=== PATIENT | female | born 1990 | race Caucasian/White ===

== ENCOUNTER 2020-04-27 08:43 | Outpatient (REF) | payer SELFPAY | END 2020-04-27 08:44 | disposition home or self-care (01) | LOC: HO.LAB 08:43 | PROVIDERS: Visit Provider Internal Medicine | DX: Z20.828 Contact with and (suspected) exposure to other viral communicable diseases (principal) | CPT/HCPCS: C9803; U0003 ==

== ENCOUNTER 2025-01-24 11:19 | Emergency (ER) | payer BC, SELFPAY ==
--- OUTSIDE RECORDS SUMMARY | 2025-01-15 11:00 | XMS_ITS | Continuity of Care Document ---
Author Organization [facility] Address [address] [place] [address] [address] [place] [id number] Phone Care Team Providers Care Cutter Woodwind Reeds Name Role Phone Kyle HECTOR, RVT, RPVI, Manfred Unavailable U navailable Allergies, Adverse Reactions, Alerts Substance Reaction Status Criticality No Known Allergies Active No Inform ation Procedures Procedure Date Office/Outpt E&M Established 15 Mins- CT & [place] Duplex Scan-extrem Veins; Comp- CT & [place] Duplex Scan-extrem Veins; Uni/ CT & [place] J Endovenous Rf, 1st Vein- [place] & [place] 2024 Duplex Scan-extrem Veins; Uni/ CT & [place] J Varithena, Single Truncal Vein - CT & [place] Endovenous Laser, 1st Vein- CT & [place] PT Did Not Receive Services Offic/outpt E&m Estab 5 Min Trial- Telem edicine CT & [place] Office/Oupt E&M New Pt 45 Mins- CT & [place] Duplex Scan-extrem Veins; Comp- CT & [place] Duplex Scan-extrem Veins; Uni/ CT & [place] J Advance Directives Directive Yes / No Effective Date File Name No Information Encounters Encounter Description Practice Location Reason(s) For Visit Diagnoses Date Provider Providers Copied on Encounter Office/Outpt E&M Established 15 Mins- [place] & [place] [facility], [address] [place] [address] Dr Marrero [address] 1000Sarah [place], [id number], [place] tel:[phone] [facility] Venous insufficiency (chronic) (peripheral) 5 Kyle HECTOR RVT, MONICA Shearer. [address] [place] [address], [address], [place], [id number], [place]. tel:[phone] Referring Provider: Quincy Thurston, [address], [address], [place], [id number]. tel:[phone] [facility] [address] Marrero [address] 1000Sarah [place], [id number], [place] tel:[phone] [facility] Chronic venous hypertension (idiopathic) with other complications of bilateral lower extremity 5 Kyle HECTOR RVT, MONICA Shearer. [address] [place] [address], [address], [place], [id number], [place]. tel:[phone] Referring Provider: Quincy Thurston, [address], [address], [place], [address]. tel:[phone] [facility], [address] [place] [address] Dr Marrero 1000[address] 1000Sarah [place], [id number], [place] tel:[phone] [facility] Encounter for follow-up examination after completed treatment for conditions other than malignant neoplasmChron ic venous hypertension (idiopathic) with other complications of right lower extremity 5 Kyle HECTOR RVT, MONICA Shearer. [address] [place] [address], [address], [place], [id number], [place]. tel:[phone] Referring Provider: Quincy Thurston, [address], [address], [place], [address]. tel:[phone] [facility] MD RAINES, [address] [place] [address] Dr Marrero 1000Suite 1000Sarah [place], [id number], [place] tel:[phone] [facility] Chronic venous hypertension (idiopathic) with inflammation of right lower extremity 5 Kyle HECTOR RVT, MONICA Shearer. [address] [place] [address], [address], [place], [id number], [place]. tel:[phone] Referring Provider: Quincy Thurston, [address], [address], [place], [address]. tel:[phone] [facility], [address] [place] [address] Dr Marrero 1000[address], [place] Sarah, [id number], [place] tel:[phone] [facility] Encounter for follow-up examination after completed treatment for conditions other than malignant neoplasmChron ic venous hypertension (idiopathic) with other complications of left lower extremity 5 Kyle HECTOR RVT, MONICA Shearer. [address] [place] [address], [address], [place], [id number], [place]. tel:[phone] Referring Provider: Quincy Thurston, [address], [address], [place], [address]. tel:[phone] [facility], [address] [place] [address] [address]Sarah [place], [id number], [place] tel:[phone] [facility] Varicose veins of left lower extremity with other complications 5 Kyle HECTOR RVT, MONICA Shearre. [address] [place] [address], [address], [place], [id number], [place]. tel:[phone] Referring Provider: Quincy hTurston, [address], [address], [place], [address]. tel:[phone] [facility], [address] [place] [address] [address] [address] 1000Sarah [place], [id number], [place] tel:[phone] [facility] Venous insufficiency (chronic) (peripheral) 5 Kyle HECTOR, TORY, MONICA Shearer. [address] [place] [address] 302, [place], [id number], [place]. tel:[phone] Referring Provider: Quincy Thurston, [address], [address], [place], [address]. tel:[phone] [facility], [address] [place] [address] [facility] [address], [place] Sarah, [id number], tel:[phone] [facility] No Information 5 Kyle HECTOR RVT, MONICA Shearer. [address] [place] [address], [place], [id number], [place]. tel:[phone] [place] [facility], [address] [place] [address] [facility] [address], [place] Sarah, [id number], [place] tel:[phone] [facility] No Information 5 Sedrick Lay. [address] [place] [address], [place], [id number], [place]. tel:[phone] Referring Provider: Quincy Thurston, [address], [address], [place], [address]. tel:[phone] Offic/outpt E&m Estab 5 Min Trial- Telemedicine CT & [place] [facility], [address] [place] [address] [facility] [address], [place] Sarah, [id number], [place] tel:[phone] [facility] Localized edemaCramp and spasmRestless legs syndromeVenou s insufficiency (chronic) (peripheral) 5 Sedrick Lay. [address] [facility], [address], [place], [id number], [place]. tel:[phone] Referring Provider: Quincy Thurston, [address], [address], [place], [address]. tel:[phone] Office/Oupt E&M New Pt 45 Mins- CT & [place] [facility], [address] [place] [address] [facility] [address], [place] Sarah, [id number], tel:[phone] [facility] [place] [facility] [place] Chronic venous hypertension (idiopathic) with other complications of bilateral lower extremityRest less legs syndromeCramp and spasmLocalize d edema 4 Kyle HECTOR RVT, MONICA Shearer. [address] [place] [address], [place], [id number], [place]. tel:[phone] Referring Provider: Quincy Thurston, [address], [address], [place], [address]. tel:[phone] [facility], [address] [place] [address] [facility] 1000[address] 1000Sarah [place], [id number], [place] tel:[phone] [facility] [place] [facility] [place] Chronic venous hypertension (idiopathic) with other complications of bilateral lower extremity 4 Kyle HECTOR RVT, MONICA Shearer. [address] [place] [address], [address], [place], [id number], [place]. tel:[phone] Referring Provider: Quincy Thurston, [address], [address], [place], [address]. tel:[phone] [facility], [address] [place] [address] Dr Marrero 1000[address] 1000Sarah [place], [id number], [place] tel:[phone] [facility] [place] [facility] [place] Pain in left leg 4 Kyle HECTOR RVT, MONICA Shearer. [address] [place] [address], [address], [place], [id number], [place]. tel:[phone] Referring Provider: Quincy Thurston, [address], [address], [place], [address]. tel:[phone] Family History Family Member Type Diagnosis Age At Onset No Information Payers Payer name Insurance type Covered constitution party ID Authoresme humphreys(s) POLI EMERALD ORO [id number] Social History Type Description Quantity Date Captured Comments Alcohol Use Details Unknown Caffeine Use Details Unknown Tobacco Use Status Current non-smoker Smoking Status Never Smoker Non-Smoking Tobacco Use Details : No Details Available : No Details Available Sex Female Vital Signs Date / Time: Height Weight BMI Pulse Rate Blood Pressure Temperature Respiratory Rate Body Surface Area Head Circumference Head Circ. Percentile Wt./Florentino. Percentile BMI percentile Pulse Ox Inhaled Ox 72.570 kg (160.00 lbs) 25.9 0 kg/m eter (2) 120/78 mm[Hg] Chief Complaint And Reason For Visit No Information Reason For Referral Reason For Referral No Information Plan Of Treatment Date Type Action Status Goal Diet education completed Goal Diet education completed Referral Ordered: Weight management: Referral to physician timeframe: 3 Months (related to Body mass index (BMI) 25.0-25.9, adult) ordered Referral Ordered: Weight management: Referral to physician timeframe: 3 Months (related to Body mass index (BMI) 25.0-25.9, adult) ordered History Of Present Illness Encounter Date Complaint History Of Prese nt Illness No Information Functional Status Date Functional Assessmen t No Information Instructions Date Instruction Additional Infor kimion Patient education booklet given Related to Venous insufficiency (chronic) (peripheral) Compression stocking usage as conservative measure Related to Venous insufficiency (chronic) (peripheral) Lifestyle education Related to B fatoumata mass index (BMI) 25.0-25.9, adult Giving Encouragement to exercise Related to Body mass index (BMI) 25.0-25.9, adult Diet education Related to Body mass index (BMI) 25.0-25.9, adult Pre and post instruc tions reviewed and provided Related to Localized edema Patient education booklet given Related to Localized edema Lifestyle education Related to B fatoumata mass index (BMI) 25.0-25.9, adult Giving Encouragement to exercise Related to Body mass index (BMI) 25.0-25.9, adult Pre and post instruc tions reviewed and provided Related to Chronic venous hypertension (idiopathic) with other complications of bilateral lower extremity Patient education booklet given Related to Chronic venous hypertension (idiopathic) with other complications of bilateral lower extremity Diet education Related to Body mass index (BMI) 25.0-25.9, adult Assessments Type Assessment Date No Information Patient Care Teams Name Effective Dates (start - stop) Status Members No Information
--- NOTE | ~2025-01-24 | CT_ITS ---
EXAMINATION: CT ABDOMEN AND PELVIS WITH CONTRAST CLINICAL INFORMATION: Abdominal pain COMPARISON: None available. TECHNIQUE: Multidetector volumetric images were obtained from the superior aspect of the liver through the pubic symphysis following administration 85 mL of Omnipaque 350 intravenous contrast. Sagittal and coronal reformatted images were obtained on the technologist's workstation. Oral contrast: No This CT examination was performed using dose optimization techniques as appropriate, variously including the following: *Automated exposure control *Adjustment of mA and/or kV according to patient size (this includes techniques or standardized protocols for targeted exams where dose is matched to indication/reason for exam; i.e. extremities or head) *Use of iterative reconstruction technique DLP: 560 mGY*cm FINDINGS: LUNG BASES: The visualized lung bases are unremarkable. LIVER, GALLBLADDER, AND BILIARY TREE: The liver is normal in size, shape, and attenuation. No focal hepatic lesion or biliary ductal dilatation is present. The gallbladder is unremarkable with no evidence of radiopaque gallstones, gallbladder wall thickening, or obvious pericholecystic inflammatory changes. PANCREAS: Unremarkable. SPLEEN: Unremarkable. ADRENAL GLANDS: Unremarkable. KIDNEYS AND URETERS: The kidneys are normal in size, shape, and attenuation. No hydronephrosis, hydroureter, or calculi seen. No perinephric stranding. BLADDER: Unremarkable. GASTROINTESTINAL TRACT: The small and large bowel are unremarkable. The appendix is unremarkable. ABDOMINAL WALL: There is a small umbilical hernia containing normal density adipose tissue. LYMPH NODES: Normal. VASCULAR: Unremarkable. PELVIC VISCERA: Uterus and ovaries are identified. There is a dominant follicle in the left ovary OSSEOUS STRUCTURES: Unremarkable. CT/CT abdomen pelvis w IV con IMPRESSION: Unremarkable abdomen and pelvis aside from a small umbilical hernia. Fleischner guidelines were followed. Electronically signed by: Marc Rowland MD 01/24/2025 03:00 PM EDT
--- NOTE | 2025-01-24 11:30 | ED.GENADULT ---
HPI - General Adult General Chief complaint: Abdominal Pain Stated complaint: vomiting blood Time Seen by Provider: 01/24/25 12:16 History of Present Illness ED Provider: Oli Barba HPI narrative: 34 yold female with pmh of treasurejacques purcell tear presents to the ED for abdominal pain and vomitting. Patient states after having steak dinner last night patient states she woke up with abdominal pain vomitting bile mutiple times and than had emesis with specs of blood. Patient denies any hemorrhage profound bleeding or coffe ground emesis. patient states feeling nauseaous since . Patient states she had only small amount of wine last night. Patient denies any profuse alcohol drinking or any drug use. She has not had any vomiting of blood while waiting to be seen in the ED. Patient states pain that is more acid burning sensation Related Data Previous Rx's ?Medication ?Instructions ?Recorded famotidine 20 mg tablet (Pepcid) 20 mg PO BID 10 days #20 tabs 01/24/25 Allergies Allergy/AdvReac Type Severity Reaction Status Date / Time pear Allergy Unknown Verified 01/24/25 11:32 Review of Systems Review of Systems: Vomiting bowel and mild blood abdominal Yes all other systems are reviewed and are negative [facility] Social History Social History Alcohol intake: current Physical Exam ED Vital Signs: Vital Signs - 24 hr 01/24/25 11:31 01/24/25 12:21 01/24/25 14:44 Temperature 98.6 F 98.7 F Pulse Rate 70 68 71 Respiratory Rate 16 18 15 Blood Pressure 118/78 134/82 127/77 Pulse Oximetry 96 99 98 Oxygen Delivery Method Room Air Room Air Room Air 01/24/25 15:48 Temperature Pulse Rate 70 Respiratory Rate 16 Blood Pressure 134/88 Pulse Oximetry 98 Oxygen Delivery Method Room Air BMI result Body Mass Index 27.8 Const General: cooperative, healthy appearing, comfortable, no acute distress, well developed, alert, awake and Physically active Orientation/consciousness: patient oriented x3 HENMT Head: Yes normal to inspection, Yes No palpable skull fracture present, Yes normocephalic, Yes atraumatic and No abrasion Mouth: Normal oral and palatal mucosa present, lip normal and tongue normal Teeth and gingiva: dentition normal and gingiva normal Throat: Yes posterior oropharynx normal, Yes tonsils normal and Yes uvula midline Eyes General: appearance normal, both eyes and all related structures Neck Neck: Yes normal visual inspection, Yes full ROM, Yes no lymphadenopathy, Yes no meningeal signs, Yes trachea midline, Yes supple, No anterior neck swelling and No tender Chest Chest palpation & inspection: normal inspection of the chest and normal palpation of entire chest wall Resp Effort & Inspection: normal respiratory effort and able to speak in complete sentences Auscultation: clear to auscultation bilaterally Cardio Jugular venous distension: no JVD Heart sounds: S1 normal heart sound present and S2 normal heart sound present GI Other: Rectal exam negative for any active bleeding, black stool, melena, or hemorrhoids Inspection: Yes normal to inspection Palpation (GI): Soft to palpation, not firm, nontender, no guarding and not rigid General: Yes no CVA tenderness Back/Spine/Pelvis Back: no CVA tenderness and No back tenderness Skin General skin exam: no rashes or lesions noted, elasticity normal and turgor normal Neuro General: patient oriented x3, gait normal, tone normal, moves all extremities, Normal light touch and pain sensation, no meningeal signs, no focal motor deficits and CN's II-XI intact bilaterally Extrem General: Yes normal to inspection, Yes full ROM and Yes capillary refill normal Psych Appearance: grossly normal, well kempt and not disheveled Course Course Course Narrative: RME, this is a rapid medical exam performed by Serge Reynoso please refer to primary provider for complete H&P- 34-year-old female presents for evaluation of abdominal pain, vomiting. She reports vomiting blood that started this morning. 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 She reports drinking 1 glass of wine 2 to 3 times a week but no excessive alcohol use. Plan for labs. She appears quite comfortable, less likely surgical abdomen, we will defer imaging at this time Medications Administered Discontinued Medications Generic Name Dose Route Start Last Admin Trade Name Freq PRN Reason Stop Dose Admin Sodium Chloride 1,000 mls @ 999 mls/hr 01/24/25 14:15 01/24/25 14:57 Ns IV 01/24/25 15:15 999 mls/hr .Q1H1M STA Administration Iohexol 100 ml 01/24/25 14:51 01/24/25 14:52 Iohexol 350 Mg/Ml 100 Ml Infus..Btl IV 01/24/25 14:52 85 ml ONCE ONE Administration Ondansetron HCl 4 mg 01/24/25 12:43 01/24/25 12:57 Ondansetron Hcl 4 Mg/2 Ml Vial IVPUSH 01/24/25 12:44 4 mg ONCE ONE Administration Pantoprazole Sodium 80 mg 01/24/25 12:50 01/24/25 12:57 Pantoprazole Sodium 40 Mg/10 Ml Vial IVPUSH 01/24/25 12:51 80 mg ONCE ONE Administration Medical Decision Making Medical Decision Making [facility] Narrative: 34-year-old female history of Treasure-Alvarenga tear presents to ED for multiple episodes of vomiting with yellow bile and then some specks of blood. Initial labs are stable. Patient states feeling better after receiving Protonix and Zofran. Patient has not had any emesis episode or emesis with blood. Patient denies drinking large volume of alcohol. Unlikely Treasure-Alvarenga tear was sent for CAT scan due to patient stating vomiting with yellow bowel to make sure that is no pancreatitis or cholecystitis. Rectal exam negative for any stool. Patient is comfortable we will re-evaluate pending CT scan. 3:43pm: Abdominal CT scan came back normal. Repeat CBC came back stable. Patient is hemodynamically stable. Patient is eating food. Occult stool sample negative. Not suspecting GI bleed, Treasure-Alvarenga tear, esophageal varices, abdominal perforation, CT, or any other life-threatening etiology. Patient explained worrisome signs and informed to return to the ED immediately. Patient's ate a plate of food before discharge Differential Diagnosis Differential Diagnoses: The differential diagnosis associated with the presentation includes (Gastritis, Alvarenga tear, GI bleed, colitis) Admission/Observation Consideration of admission/observation: Escalation of care including admission/observation considered Lab Data [facility] Lab Attestation statement: I reviewed the patient's lab results. 01/24/25 15:27 01/24/25 11:52 Labs: Lab Results 01/24/25 01/24/25 01/24/25 Range/Units 11:52 13:39 13:40 WBC 11.4 H (4.8-10.8) X10*3/uL RBC 4.31 (4.20-5.50) X10*6/uL Hgb 13.1 (12.0-16.0) g/dl Hct 37.8 (37.0-47.0) % MCV 87.7 (80.0-98.0) fL MCH 30.4 (27.0-33.0) pg MCHC 34.7 (31.0-35.0) g/dl RDW 12.3 (11.0-16.0) % Plt Count 376 (160-400) X10*3/uL MPV 9.8 (9.4-12.3) fL Immature Gran % (Auto) 0.4 (0.0-0.4) % Neut % (Auto) 81.1 H (45-73) % Lymph % (Auto) 12.9 L (20-40) % Piute % (Auto) 5.1 (2-11) % Eos % (Auto) 0.0 (0-4) % Baso % (Auto) 0.5 (0-2) % Lymph # (Auto) 1.5 (1.2-4.9) X10*3/uL [place] # (Auto) 0.6 (0.1-1.2) X10*3/uL Eos # (Auto) 0.0 (0.0-0.4) X10*3/uL Baso # (Auto) 0.1 (0.0-0.2) X10*3/uL Abs Immat Gran (auto) 0.04 H (0.00-0.03) X10*3/uL Absolute Neuts (auto) 9.2 H (2.0-8.3) x10*3/uL Absolute Nucleated RBC 0.000 (0.0-0.012) X10*3/uL Nucleated RBC % (auto) 0.0 (0.0-0.2) /100WBC PT 11.3 (10.9-12.4) SEC INR 1.0 (0.9-1.1) Sodium 140 (135-145) mmol/L Potassium 3.8 (3.3-5.1) mmol/L Chloride 106 (96-108) mmol/L Carbon Dioxide 24 (22-29) mmol/L Anion Gap 14 (12-20) BUN 12 (9-16) mg/dL Creatinine 0.66 (0.5-1.4) mg/dL Estim Creat Clear Calc 125.4 Estimated GFR > 60 Random Glucose 102 (60-115) mg/dL Calcium 9.3 (8.4-10.2) mg/dL Total Bilirubin 0.5 (0.0-1.0) mg/dL AST 26 (5-31) U/L ALT 29 (0-31) U/L Alkaline Phosphatase 49 (39-117) U/L Troponin I High Sens < 2.7 (<3.5-17.0) ng/L Total Protein 7.3 (6.5-8.0) g/dL Albumin 5.0 (3.5-5.0) g/dL Lipase 37 (8-78) U/L Beta HCG, Quant < 2 mIU/mL Urine Color Yellow Urine Appearance Clear Urine pH 7.5 (5.0-9.0) Ur Specific [place] 1.025 (1.005-1.025) Urine Protein Negative (Neg-Trace) mg/dL Urine Glucose (UA) Negative (Negative) mg/dL Urine Ketones Negative (Negative) mg/dL Urine Blood Negative (Negative) Urine Nitrite Negative (Negative) Ur Leukocyte Esterase Negative (Negative) Urine RBC 0-2 (0-2) /HPF Urine WBC 0-5 (0-5) /HPF Ur Squamous Epith Cells 6-10 (0-2) /HPF Urine Bacteria 2+ (None Seen) Hyaline Casts 0-2 (0-2) /LPF Urine Test NEGATIVE (NEGATIVE) Stool Occult Blood NEGATIVE (NEGATIVE) Ethyl Alcohol < 10 mg/dL Influenza Type A (PCR) NEGATIVE (Negative) Influenza Type B (PCR) NEGATIVE (Negative) RSV RNA Qual (PCR) NEGATIVE (Negative) SARS-CoV-2 RNA (RT-PCR) NEGATIVE (Negative) S. pyogenes GrpA BECKI Negative (Negative) 01/24/25 Range/Units 15:27 WBC 11.9 H (4.8-10.8) X10*3/uL RBC 4.14 L (4.20-5.50) X10*6/uL Hgb 12.3 (12.0-16.0) g/dl Hct 36.9 L (37.0-47.0) % MCV 89.1 (80.0-98.0) fL MCH 29.7 (27.0-33.0) pg MCHC 33.3 (31.0-35.0) g/dl RDW 12.4 (11.0-16.0) % Plt Count 351 (160-400) X10*3/uL MPV 9.5 (9.4-12.3) fL Immature Gran % (Auto) 0.4 (0.0-0.4) % Neut % (Auto) 71.1 (45-73) % Lymph % (Auto) 20.3 (20-40) % Piute % (Auto) 7.7 (2-11) % Eos % (Auto) 0.0 (0-4) % Baso % (Auto) 0.5 (0-2) % Lymph # (Auto) 2.4 (1.2-4.9) X10*3/uL [place] # (Auto) 0.9 (0.1-1.2) X10*3/uL Eos # (Auto) 0.0 (0.0-0.4) X10*3/uL Baso # (Auto) 0.1 (0.0-0.2) X10*3/uL Abs Immat Gran (auto) 0.05 H (0.00-0.03) X10*3/uL Absolute Neuts (auto) 8.4 H (2.0-8.3) x10*3/uL Absolute Nucleated RBC 0.000 (0.0-0.012) X10*3/uL Nucleated RBC % (auto) 0.0 (0.0-0.2) /100WBC PT (10.9-12.4) SEC INR (0.9-1.1) Sodium (135-145) mmol/L Potassium (3.3-5.1) mmol/L Chloride (96-108) mmol/L Carbon Dioxide (22-29) mmol/L Anion Gap (12-20) BUN (9-16) mg/dL Creatinine (0.5-1.4) mg/dL Estim Creat Clear Calc Estimated GFR Random Glucose (60-115) mg/dL Calcium (8.4-10.2) mg/dL Total Bilirubin (0.0-1.0) mg/dL AST (5-31) U/L ALT (0-31) U/L Alkaline Phosphatase (39-117) U/L Troponin I High Sens (<3.5-17.0) ng/L Total Protein (6.5-8.0) g/dL Albumin (3.5-5.0) g/dL Lipase (8-78) U/L Beta HCG, Quant mIU/mL Urine Color Urine Appearance Urine pH (5.0-9.0) Ur Specific [place] (1.005-1.025) Urine Protein (Neg-Trace) mg/dL Urine Glucose (UA) (Negative) mg/dL Urine Ketones (Negative) mg/dL Urine Blood (Negative) Urine Nitrite (Negative) Ur Leukocyte Esterase (Negative) Urine RBC (0-2) /HPF Urine WBC (0-5) /HPF Ur Squamous Epith Cells (0-2) /HPF Urine Bacteria (None Seen) Hyaline Casts (0-2) /LPF Urine Test (NEGATIVE) Stool Occult Blood (NEGATIVE) Ethyl Alcohol mg/dL Influenza Type A (PCR) (Negative) Influenza Type B (PCR) (Negative) RSV RNA Qual (PCR) (Negative) SARS-CoV-2 RNA (RT-PCR) (Negative) S. pyogenes GrpA BECKI (Negative) Independent Interpretation I performed an independent interpretation of an: CT Scan Radiology Impression Discussion of test interpretation with radiology: I have reviewed the radiologist's reading. Independent Historian Clinical information obtained from an independent historian. History obtained from or confirmed by: Other (patient) Prescription Management I considered prescription management with: Pain Medication Discharge Plan Discharge Clinical Impression: Abdominal pain, GERD (gastroesophageal reflux disease) Patient Disposition: Home, Self-Care Instructions: GERD (Gastroesophageal Reflux Disease) (ED), Abdominal Pain (ED) Additional Instructions: Recommend follow up with primary care provider and assembler finger buffs. Return to the ED for any severe abdominal pain, vomiting blood, coffee-ground emesis, rectal bleeding, weakness, dizziness, syncopal episode, chest pain, shortness of breath, dizziness, rectal bleeding, bloody urine, or any other concerning symptoms. Ordering Physician: Oli Barba Date of Service: 01/24/25 Procedure(s): CT abdomen pelvis w IV con Accession Number(s): [id number] cc: Oli Barba; Quincy Rodriguez NP~ Report Number: [id number]: Total DLP = 560.00 mGy-cm EXAMINATION: CT ABDOMEN AND PELVIS WITH CONTRAST CLINICAL INFORMATION: Abdominal pain COMPARISON: None available. TECHNIQUE: Multidetector volumetric images were obtained from the superior aspect of the liver through the pubic symphysis following administration 85 mL of Omnipaque 350 intravenous contrast. Sagittal and coronal reformatted images were obtained on the technologist's workstation. Oral contrast: No This CT examination was performed using dose optimization techniques as appropriate, variously including the following: *Automated exposure control *Adjustment of mA and/or kV according to patient size (this includes techniques or standardized protocols for targeted exams where dose is matched to indication/reason for exam; i.e. extremities or head) *Use of iterative reconstruction technique DLP: 560 mGY*cm FINDINGS: LUNG BASES: The visualized lung bases are unremarkable. LIVER, GALLBLADDER, AND BILIARY TREE: The liver is normal in size, shape, and attenuation. No focal hepatic lesion or biliary ductal dilatation is present. The gallbladder is unremarkable with no evidence of radiopaque gallstones, gallbladder wall thickening, or obvious pericholecystic inflammatory changes. PANCREAS: Unremarkable. SPLEEN: Unremarkable. ADRENAL GLANDS: Unremarkable. KIDNEYS AND URETERS: The kidneys are normal in size, shape, and attenuation. No hydronephrosis, hydroureter, or calculi seen. No perinephric stranding. BLADDER: Unremarkable. GASTROINTESTINAL TRACT: The small and large bowel are unremarkable. The appendix is unremarkable. ABDOMINAL WALL: There is a small umbilical hernia containing normal density adipose tissue. LYMPH NODES: Normal. VASCULAR: Unremarkable. PELVIC VISCERA: Uterus and ovaries are identified. There is a dominant follicle in the left ovary OSSEOUS STRUCTURES: Unremarkable. CT/CT abdomen pelvis w IV con IMPRESSION: Unremarkable abdomen and pelvis aside from a small umbilical hernia. Fleischner guidelines were followed. Electronically signed by: Marc Rowland MD 01/24/2025 03:00 PM EDT Prescriptions: New famotidine [Pepcid] 20 mg tablet 20 mg PO BID 10 Days Qty: 20 0RF Referrals: [facility] [place] [facility] [Provider Group, Gastroenterology] - 2 days Referral Note: Abdominal pain resolved vomiting blood Clinical Impression: GERD (gastroesophageal reflux disease); Abdominal pain Quincy Rodriguez NP [Primary Care Provider, Medical] - 2 days Referral Note: Abdominal pain, resolved vomiting blood Clinical Impression: GERD (gastroesophageal reflux disease); Abdominal pain Stand Alone Forms: Work/School Release Interventions: ED Discharge Assessment Last Done: 01/24/25 16:42 Discharge Date/Time: 01/24/25 16:43 Print Language: Polish
[2025-01-24 11:31] VITALS: BP 118/78; PULSE 70; RESP 16; TEMP 37; O2SAT 96; BMI 27.8
--- NOTE | 2025-01-24 11:31 | ECG_ITS ---
Test Reason : WEAKNISS Blood Pressure : */* mmHG Vent. Rate : 73 BPM Atrial Rate : 73 BPM P-R Int : 160 ms QRS Dur : 70 ms QT Int : 402 ms P-R-T Axes : 42 3 11 degrees QTcB Int : 442 ms Normal sinus rhythm Cannot rule out Anterior infarct , age undetermined Abnormal ECG No previous ECGs available Referred By: David Reynoso Electronically Signed By: MARGI MELCHOR
[2025-01-24 12:07] LABS: MANUAL DIFF FLAG NO
[2025-01-24 12:10] LABS: Appearance Urine Clear; Glucose Urine UA Negative (Negative); PH 7.5 (5.0-9.0); Specific Gravity - Urine 1.025 (1.005-1.025)
[2025-01-24 12:11] LABS: Hematocrit 37.8 % (37.0-47.0); Hemoglobin 13.1 g/dl (12.0-16.0); Imm Gran Abs Auto 0.04 X10*3/uL (0.00-0.03); Imm Gran Pct Auto 0.4 % (0.0-0.4); Lymphocytes Absolute Auto 1.5 X10*3/uL (1.2-4.9); Mean Corpuscular HGB Conc 34.7 g/dl (31.0-35.0); Mean Corpuscular Hemoglobin 30.4 pg (27.0-33.0); Mean Corpuscular Volume 87.7 fL (80.0-98.0); NRBC Abs Auto 0.000 X10*3/uL (0.0-0.012); NRBC Pct Auto 0.0 /100WBC (0.0-0.2); Platelet Count 376 X10*3/uL (160-400); Red Blood Count 4.31 X10*6/uL (4.20-5.50); White Blood Count 11.4 X10*3/uL (4.8-10.8)
[2025-01-24 12:15] LABS: INTERNATIONAL NORM RATIO 1.0 (0.9-1.1); Prothrombin Time 11.3 SEC (10.9-12.4)
[2025-01-24 12:21] VITALS: BP 134/82; PULSE 68; RESP 18; O2SAT 99
[2025-01-24 12:24] LABS: Alanine Aminotransferase 29 U/L (0-31); Albumin Level 5.0 g/dL (3.5-5.0); Alkaline Phosphatase 49 U/L (39-117); Anion Gap 14 (12-20); Aspartate Amino Transferase 26 U/L (5-31); Blood Urea Nitrogen 12 mg/dL (9-16); Calcium 9.3 mg/dL (8.4-10.2); Carbon Dioxide 24 mmol/L (22-29); Chloride 106 mmol/L (96-108); Creatinine Clr Calc Pharmacy 125.4; Estimated Glomerular Filt Rate > 60; Lipase 37 U/L (8-78); Potassium 3.8 mmol/L (3.3-5.1); Sodium 140 mmol/L (135-145); Total Protein 7.3 g/dL (6.5-8.0)
--- NOTE | 2025-01-24 12:27 | PC.NURSE ---
34 F presents to ED with n/v since monday, blood in emesis by end of day, this morning at 4am was throwing up with bright red blood. C/o all over abdominal pain 12/05 Pt is A+OX4, calm, cooperative. No vomitting at this time but pt sts she feels nauseous. Pt ambulaties without difficulty. Pt denies any CP or SOB but sts hard to take a deep breath d/t abdominal pain. RR even and unlabored. Lung sounds clear bilat.
[2025-01-24 13:12] LABS: UPreg QC Valid YES
--- OUTSIDE RECORDS SUMMARY | 2025-01-24 13:18 | XMS_ITS | Encounter Summary ---
Author Organization [facility] Address [address] [place] [address] Care Team Providers Care Plasma Processor Name Role Phone Sharee Lechuga MD Primary Care Provider [phone] Encounter Details Date Type Department Care Team (Late st Contact Info) Description 07/14/2016 Orders Only [facility] [address] [place] [phone] Sharee Lechuga MD [address] [address] Social History Tobacco Use Types Packs/Day Years Used Date Smoking Tobacco: Former Cigarettes 0.3 10.3 0 12/14/2005 - 04/13/2016 Smokeless Tobacco: Never Alcohol Use Standard Drinks/Week Comments Yes 5 (1 standard drink = 0.6 oz pur e alcohol) Comments No Sex and Gender Information Value Date Recorded Sex Assigned at Not on file Legal Sex Female 2:19 PM EDT Gender Identity Not on file Sexual Orientation Not on file documented as of this encounter Plan of Treatment Not on file documented as of this encounter Goals Goal Patient Goal Type Associated Problems Recent Progress Patient-Stated? Author Quit smoking / using tobacco Lifestyle No Sharee Lechuga-Ramon tisimón documented as of this encounter Procedures * Due to [place] state law, this organization might not be sharing negative HIV tests. Procedure Name Priority Date/Time Associated Diagnosis Comments THINPREP TIS PAP (REFL) HPV MRNA E6/E7 Routine 07/14/2016 4:43 PM EST Screening for malignant neoplasm of cervix CBC (H/H, RBC, INDICES,WBC, PLT) Routine 07/14/2016 3:23 PM EST PE (physical exam), annual THYROID STIMULATING HORMONE (TSH) WITH FREE T4 REFLEX, SERUM Routine 07/14/2016 3:23 PM EST Preventative health care LIPID PANEL WITH REFLEX TO DIRECT LDL Routine 07/14/2016 3:23 PM EST PE (physical exam), annual COMPREHENSIVE METABOLIC PANEL WITH GFR Routine 07/14/2016 3:23 PM EST PE (physical exam), annual CHLAMYDIA TRACHOMATIS/N. GONORRHOEAE (GC) RNA, TMA (URINE) Routine 07/14/2016 3:20 PM EST Preventative health care HEPATITIS B SURFACE ANTIGEN Routine 07/14/2016 3:20 PM EST Preventative health care HEPATITIS C AB WITH REFLEX TO RNA PCR, SERUM Routine 07/14/2016 3:20 PM EST Preventative health care HEPATITIS B SURFACE ANTIBODY, QUANTITATIVE (FOR IMMUNITY) Routine 07/14/2016 3:20 PM EST Preventative health care RPR, (RAPID PLASMIN REAGIN) WITH REFLEX TO FTA, DIAGNOSTIC Routine 07/14/2016 3:20 PM EST Preventative health care documented in this encounter Results * Due to [place] state law, this organization might not be sharing negative HIV tests. * THINPREP TIS PAP (REFL) HPV MRNA E6/E7 (07/14/2016 4:43 PM EST) Clinical information none given [facility] Date last menstrual period 07/04/16 [facility] Date of previous PAP smear NONE GIVEN [facility] Date of previous biopsy NONE GIVEN [facility] Specimen source (Cvx/Vag) Cervix, Endocervix [facility] Statement of Adequacy (Cvx/Vag) Satisfactory for evaluation. Endocervical/trans formation zone component present. [facility] Cytology, Pap Smear Negative for intraepithelial lesion or malignancy. [facility] Cytology study comment (Cvx/Vag) This Pap test has been evaluated with computer assisted technology. [facility] Wax Engraver (Cvx/Vag) RK, CT(ASCP) CT screening location: [address] [address] [facility] 07/14/2016 4:43 PM EST 2016 3:53 AM EST Narrative Resulting Agency Comment [id number] Sharee Lechuga MD PATHOLOGY-INTERFACED Final Resul t [facility] [address] [place] [address] * THYROID STIMULATING HORMONE (TSH) WITH FREE T4 REFLEX, SERUM (07/14/2016 3:23 PM EST) TSH (Thyrotropin) 0.42 0.40 - 4.50 uIU/ml [facility] 07/14/2016 3:23 PM EST 07/14/2016 3:23 PM EST Narrative [facility] - 07/14/2016 8:34 PM EST non fasting Patient's primary care provider is: N/A Testing performed at: [facility], [address] [place] [address], [address], Die Cleaner: Dano Wharton M.D. us Sharee Lechuga MD LABORATORY Final Result Performing Organization Address [facility]/ZIP Co de Phone Number [address] [address] DIRECTOR DANO WHARTON M.D. * LIPID PANEL WITH REFLEX TO DIRECT LDL (07/14/2016 3:23 PM EST) Cholesterol 184 <200 mg/dL [facility] Triglyceride 70 <150 mg/dL [facility] HDL Cholesterol 87 >40 mg/dL [facility] Comment: NCEP GUIDELINES Desireable >60 mg/dL Borderline 40-59 mg/dL Undesirable <40 mg/dL LDL Cholesterol 83 <130 mg/dL [facility] CHOL/HDL Ratio 2 0 - 5 CALC [facility] 07/14/2016 3:23 PM EST 07/14/2016 3:23 PM EST Narrative [facility] - 07/14/2016 8:34 PM EST non fasting Patient's primary care provider is: N/A Testing performed at: [facility], [address] [place] [address], [address], Die Cleaner: Dano Wharton M.D. Sharee Lechuga MD LABORATORY Final Result [address] [address] DIRECTOR DANO WHARTON M.D. * (ABNORMAL) COMPREHENSIVE METABOLIC PANEL WITH GFR (07/14/2016 3:23 PM EST) Glucose 87 65 - 99 mg/dl [facility] Urea Nitrogen Blood (BUN) 16 7 - 25 mg/dL [facility] Creatinine 0.72 0.50 - 1.16 mg/dL [facility] Sodium 142 136 - 145 mmo/L [facility] Potassium 4.2 3.5 - 5.3 mmol/L [facility] Chloride 103 98 - 107 mmo/L [facility] Calcium 10.1 8.5 - 10.4 mg/dL [facility] Protein Total (Serum) 7.8 6.0 - 8.3 g/dL [facility] Albumin 5.3(H) 3.5 - 5.2 g/dL [facility] Globulin 3 2 - 4 G/DL [facility] Bilirubin Total 0.56 0.20 - 1.50 mg/dL [facility] Alkaline phosphatase 57 33 - 130 U/L [facility] AST (SGOT) 19 <38 U/L [facility] ALT (SGPT) 12 <47 U/L [facility] Carbon dioxide 24 23 - 33 mmol/L [facility] GFR 103 >60 ml/min [facility] Comment:If the patient is Af rican [place]er, please multiply result by 1.210 07/14/2016 3:23 PM EST 07/14/2016 3:23 PM EST Narrative [facility] - 07/14/2016 8:02 PM EST non fasting Patient's primary care provider is: N/A Testing performed at: [facility], [address] [place] [address], [address], Die Cleaner: Dano Wharton M.D. Sharee Lechuga MD LABORATORY Final Result Performing Organization Address [facility] Co de Phone Number [address] [address] DIRECTOR DANO WHARTON M.D. * (ABNORMAL) CBC (H/H, RBC, INDICES,WBC, PLT) (07/14/2016 3:23 PM EST) WBC 11.2(H) 3.8 - 10.8 K/uL [facility] RBC 4.79 3.80 - 5.10 M/uL [facility] Hemoglobin 14.3 11.7 - 15.5 g/dL [facility] Hematocrit 42.5 35.0 - 45.0 % [facility] MCV 88.7 80.0 - 100.0 fl [facility] MCH 29.9 27.0 - 33.0 pg [facility] MCHC 33.6 32.0 - 36.0 g/dL [facility] RDW 13.0 11.0 - 15.0 % [facility] PLT 342 140 - 400 K/uL [facility] 07/14/2016 3:23 PM EST 07/14/2016 3:23 PM EST Narrative [facility] - 07/14/2016 6:52 PM EST non fasting Patient's primary care provider is: N/A Testing performed at: [address], [address], Die Cleaner: Dano Wharton M.D. Sharee Lechuga MD LAB SAME DAY RESULT Final Result Performing Organization Address [facility] Co de Phone Number [address] [address] DIRECTOR DANO WHARTON M.D. * CHLAMYDIA TRACHOMATIS/N. GONORRHOEAE (GC) RNA, TMA (URINE) (07/14/2016 3:20 PM EST) Pathologist [facility] Chlamydia trachomatis rRNA NOT DETECTED NOT DETECTED [facility] Neisseria Gonorrhoeae rRNA NOT DETECTED NOT DETECTED [facility] COMMENT SEE NOTE [facility] Comment: This test was performed using the APTIMA COMBO2 Assay ([employer] The analytical performance characteristics of this assay, when used to test SurePath specimens have been determined by [employer]. 07/14/2016 3:20 PM EST 2016 12:42 AM EST Narrative Resulting Agency Comment [id number] Sharee Lechuga MD LABORATORY Final Result Performing Organization Address [facility] Co de Phone Number [facility] [address] [place] [address] * HEPATITIS B SURFACE ANTIGEN (07/14/2016 3:20 PM EST) Pathologist [facility] Hepatitis B virus surface Ag NON-REACTI VE NON-REACT PERLITA [facility] 07/14/2016 3:20 PM EST 2016 12:42 AM EST Narrative Resulting Agency Comment [id number] Sharee Lechuga MD LABORATORY Final Result Performing Organization Address [facility] Co de Phone Number [facility] [address] [place] [address] * HEPATITIS B SURFACE ANTIBODY, QUANTITATIVE (07/14/2016 3:20 PM EST) Pathologist [facility] Hepatitis B virus surface Ab 32 > OR = 10 mIU/mL [facility] Comment: Patient has immunity to hepatitis B virus. For additional information, please refer to http://education.[employer].Coreworks/faq/MSM032 (This link is being provided for informational/ educational purposes only). 07/14/2016 3:20 PM EST 2016 12:42 AM EST Narrative Resulting Agency Comment [id number] Sharee Lechuga MD LABORATORY Final Result Performing Organization Address [facility] Co de Phone Number [facility] [address] [place] [address] * HEPATITIS C AB WITH REFLEX TO RNA PCR, SERUM (07/14/2016 3:20 PM EST) Hepatitis C virus Ab NON-REACTI VE NON-REACT PERLITA [facility] Hepatitis C virus Ab Signal/Cutoff 0.01 <1.00 [facility] 07/14/2016 3:20 PM EST 2016 12:42 AM EST Narrative Resulting Agency Comment [id number] Sharee Lechuga MD LABORATORY Final Result Performing Organization Address [facility] de Phone Number [facility] [address] [place] [address] * RPR, (RAPID PLASMIN REAGIN) WITH REFLEX TO FTA, DIAGNOSTIC (07/14/2016 3:20 PM EST) Reagin Ab NON-REACTI VE NON-REACTI VE [facility] 07/14/2016 3:20 PM EST 2016 12:42 AM EST Narrative Resulting Agency Comment [id number] Sharee Lechuga MD LABORATORY Final Result Performing Organization Address [facility] de Phone Number [facility] [address] [place] [address] documented in this encounter Visit Diagnoses Diagnosis PE (physical exam), annual Routine general medical examination at a health care facility Preventative health care Routine general medical examination at a health care facility Screening for malignant neoplasm of cervix Screening for malignant neoplasm of the cervix documented in this encounter Care Teams Plasma Processor Relationship Specialty Start Date End Date Sharee Lechuga MD PCP - General Internal Medicine 12/09/15 11/04/18 documented as of this encounter
--- OUTSIDE RECORDS SUMMARY | 2025-01-24 13:18 | XMS_ITS | Clinical Summary ---
Author Organization [facility] Address [address] [place] [id number] Care Team Providers Care Cloth Roll Winder Name Role Phone Trini Aiken DO Primary Care Provider [phone] Surgical History Surgery Date Site/Laterality Comments OTHER SURGICAL HISTORY PROCEDURE: DENIES PREVIOUS SURGERY Medical History Medical History Date Comments Infectious mononucleosis 10/02 DX:Infe ctious mononucleosis; COMMENT: IgG positive, IgM neg Allergic rhinitis, cause unspecified 10/02 DX:Allergic rhinitis, cause unspecified; COMMENT: +RAST dust, mild rxn to cats Herpes simplex without menti on of complication 10/02 DX:Herpes simplex without me ntion of complication; COMMENT: nares, Valtrex given to prevent future outbreaks Varicella without mention of complication 1993 DX:Varicella without mention of complication 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 PT Family History Medical History Relation Name Comments Allergies Father Diabetes Maternal Grandfather MGGF an d aunt Other: heart Maternal Grandfather Other: cancer of thyroid Maternal Grandmother Other: aneurysm Other 1 MGGM Breast cancer Paternal Grandfather Relation Name Status Comments Brother 1 Alive step Quincy nieves Brother 2 Alive Adis Father Alive Otero Maternal Grandfather Maternal Grandmother Mother Alive trina Other 1 Other 2 Paternal Grandfather Social History Tobacco Use Types Packs/Day Years Used Date Smoking Tobacco: Every Day Cigarettes Alcohol Use Standard Drinks/Week Comments Not Asked 0 (1 standard drink = 0.6 oz pur e alcohol) Comments Unknown Sex and Gender Information Value Date Recorded Sex Assigned at Not on file Legal Sex Female 6:03 PM EST Gender Identity Not on file Sexual Orientation Not on file Obstetrics History Plan of Treatment Health Maintenance Due Date Last Done Comments Pneumococcal Vaccine: Pediatrics (0 to 5 Years) and At-Risk Patients (6 to 49 Years) (1 of 2 - PCV) 2008 Cervical Cancer Screening: Pap Smear 2010 DTaP,Tdap,and Td Vaccines (8 - Td or Tdap) 10/18/2016 10/18/2006, 01/30/2002, 04/12/1995, Additional history exists HIV Screening 04/30/2022 Hepatitis C Screening 04/30/2022 Social Influencers of Health Screening 04/30/2022 COVID-19 Vaccine ( season) 2024 Depression Screening 05/29/2024 Influenza Vaccine (#1) 2025 HIB Vaccines Completed 04/07/1992 IPV Vaccines Completed 04/12/1995, 03/29, 04/07/1992, Additional history exists MMR Vaccines Completed 04/12/1995, 04/07/1992 Hepatitis B Vaccines Completed 01/30/2002, 03/28/2000, 01/11/2000 Meningococcal ACWY Vaccine Completed 10/18/2006 HPV Vaccines Completed 11/16/2007, 01/28, 10/18/2006 Hepatitis A Vaccines Aged Out No long er eligible based on patient's age to complete this topic Meningococcal B Vaccine Aged Out No l onger eligible based on patient's age to complete this topic RSV Immunization Patients Under 20 months Aged Out No longer eligible based on patient's age to complete this topic Varicella Vaccines Aged Out No longer eligible based on patient's age to complete this topic Care Teams Cloth Roll Winder Relationship Specialty Start Date End Date Trini Aiken DO [address] [address] PCP - General 08/17/10
--- OUTSIDE RECORDS SUMMARY | 2025-01-24 13:18 | XMS_ITS | Encounter Summary ---
Author Organization [facility] Address [address] [place] [address] Care Team Providers Care Lab Specialist Name Role Phone Sharee Lechuga MD Primary Care Provider [phone] Encounter Details Date Type Department Care Team (Late st Contact Info) Description 02/18/2017 Orders Only [facility] Adult Medicine [address] [place] [phone] Sharee Lechuga MD [address] [address] Social History Tobacco Use Types Packs/Day Years [...] of this encounter Procedures * Due to [place] state law, this organization might not be sharing negative HIV tests. Procedure Name Priority Date/Time Associated Diagnosis Comments BV/VAGINITIS PANELDNA PROBE(AFFIRM) Routine 02/18/2017 10:06 AM EDT Acute vaginitis documented in this encounter Results * Due to [place] state law, this organization might not be sharing negative HIV tests. * (ABNORMAL) BV/VAGINITIS PANELDNA PROBE (02/18/2017 10:06 AM EDT) Trichomonas vaginalis rRNA (Genital) NOT DETECTED NOT DETECTED [facility] Gardnerella vaginalis rRNA (Genital) DETECTED(A) NOT DETECTED [facility] Comment:Increased levels of G. Vaginalis may not be significant in the absence of signs of bacterial vaginosis. Kerri sp rRNA (Vag) NOT DETECTED NOT DETECTED [facility] 02/18/2017 10:0 6 AM EDT 02/18/2017 10:06 AM EDT Narrative [facility] - 02/19/2017 10:05 AM EDT Patient's primary care provider is: N/A Testing performed at: [facility], [address] [place] [address], [address], Tractor Mechanic: Dano Wharton M.D. Sharee Lechuga MD LABORATORY Final Result Performing Organization Address City/[facility] Co de Phone Number [address] [address] DIRECTOR DANO WHARTON M.D. documented in this encounter Visit Diagnoses Diagnosis Acute vaginitis Vaginitis and vulvovaginitis, unspecified documented in this encounter Care Teams Lab Specialist Relationship Specialty Start Date End Date Sharee Lechuga MD PCP - General Internal Medicine 12/09/15 11/04/18 documented as of this encounter
--- OUTSIDE RECORDS SUMMARY | 2025-01-24 13:18 | XMS_ITS | Encounter Summary ---
Author Organization [facility] Address [address] [place] [address] Care Team Providers Care Dental Equipment Technician Name Role Phone Sharee Lechuga MD Primary Care Provider Encounter Details Date Type Department Care Team (Late st Contact Info) Description 10/19/2016 Orders Only [facility] [address] [place] [phone] Sharee Lechuga MD [address] [address] Medications Social History Tobacco Use Types Packs/Day Years [...] of this encounter Procedures * Due to [place] state law, this organization might not be sharing negative HIV tests. Procedure Name Priority Date/Time Associated Diagnosis Comments BV/VAGINITIS PANELDNA PROBE(AFFIRM) Routine 10/19/2016 4:29 PM EDT Acute vaginitis CBC (H/H, RBC, INDICES,WBC, PLT) Routine 10/19/2016 11:00 AM EDT Leukocytosis, unspecified type CHLAMYDIA TRACHOMATIS/N. GONORRHOEAE (GC) RNA, TMA (URINE) Routine 10/19/2016 10:59 AM EDT Acute vaginitis documented in this encounter Results * Due to [place] state law, this organization might not be sharing negative HIV tests. * (ABNORMAL) BV/VAGINITIS PANELDNA PROBE (10/19/2016 4:29 PM EDT) Trichomonas vaginalis rRNA (Genital) NOT DETECTED NOT DETECTED [facility] Gardnerella vaginalis rRNA (Genital) DETECTED(A) NOT DETECTED [facility] Comment:Increased levels of G. Vaginalis may not be significant in the absence of signs of bacterial vaginosis. Kerri sp rRNA (Vag) NOT DETECTED NOT DETECTED [facility] 10/19/2016 4:29 PM EDT 10/19/2016 4:29 PM EDT Narrative [facility] - 10/21/2016 11:30 AM EDT Patient's primary care provider is: N/A Testing performed at: [facility], [address] [place] [address], [address], Welding Machine Operator Helper Arc: Dano Wharton M.D. Sharee Lechuga MD LABORATORY Final Result [address] [address] DIRECTOR DANO WHARTON M.D. * CBC (H/H, RBC, INDICES,WBC, PLT) (10/19/2016 11:00 AM EDT) WBC 9.0 3.8 - 10.8 K/uL [facility] RBC 4.57 3.80 - 5.10 M/uL [facility] Hemoglobin 13.7 11.7 - 15.5 g/dL [facility] Hematocrit 41.6 35.0 - 45.0 % [facility] MCV 91.0 80.0 - 100.0 fl [facility] MCH 30.0 27.0 - 33.0 pg [facility] MCHC 32.9 32.0 - 36.0 g/dL [facility] RDW 13.1 11.0 - 15.0 % [facility] PLT 347 140 - 400 K/uL [facility] 10/19/2016 11:0 0 AM EDT 10/19/2016 11:00 AM EDT Narrative [facility] - 10/19/2016 12:46 PM EDT Patient's primary care provider is: N/A Testing performed at: [facility], [address] [place] [address], [address], Welding Machine Operator Helper Arc: Dano Wharton M.D. Sharee Lechuga MD LAB SAME DAY RESULT Final Result Performing Organization Address [facility]/ZIP Co de Phone Number [address] [address] DIRECTOR DANO WHARTON M.D. * CHLAMYDIA TRACHOMATIS/N. GONORRHOEAE (GC) RNA, TMA (URINE) (10/19/2016 10:59 AM EDT) Chlamydia trachomatis rRNA NOT DETECTED NOT DETECTED [facility] Neisseria Gonorrhoeae rRNA NOT DETECTED NOT DETECTED [facility] COMMENT SEE NOTE [facility] Comment: This test was performed using the APTIMA COMBO2 Assay ([employer] The analytical performance characteristics of this assay, when used to test SurePath specimens have been determined by [facility]. 10/19/2016 10:5 9 AM EDT 10/19/2016 3:12 PM EDT Narrative Resulting Agency Comment [id number] Sharee Lechuga MD LABORATORY Final Result [facility] [address] [place] [address] documented in this encounter Visit Diagnoses Diagnosis Leukocytosis, unspecified type Acute vaginitis Vaginitis and vulvovaginitis, unspecified BV (bacterial vaginosis) Vaginitis and vulvovaginitis, unspecified documented in this encounter Care Teams Dental Equipment Technician Relationship Specialty Start Date End Date Sharee Lechuga MD PCP - General Internal Medicine 12/09/15 11/04/18 documented as of this encounter
--- OUTSIDE RECORDS SUMMARY | 2025-01-24 13:18 | XMS_ITS | Clinical Summary ---
Author Organization [facility] Address [address] [facility] [address] [place] [phone] Phone Care Team Providers Care Surface Grinder Tender Name Role Phone Pcp, Not Required Primary Care Provider Unavaila ble Allergies No known active allergies Medications sucralfate (CARAFATE) 1 gram tablet Take 1 tablet (1 g total) by mouth 3 (three) times a day as needed (Before meals for heartburn, or when needed for epigastric pain). 14 tablet 0 6 Active Social History Tobacco Use Types Packs/Day Years Used Date Smoking Tobacco: Never Assessed Education Answer Date Recorded Are you interested in more education? Not on harjeet e 09/22/2022 Are you concerned about learning? Not on file 09/22/2022 No 09/22/2022 No 09/22/2022 Digital Access Answer Date Recorded No 10/24/2022 No 10/24/2022 No 10/24/2022 Reliable internet access at home? Not on file 10/24/2022 Device with a working camera? Not on file Comments Unknown Sex and Gender Information Value Date Recorded Sex Assigned at Not on file Legal Sex Female 7:42 PM EST Gender Identity Not on file Sexual Orientation Not on file Last Filed Vital Signs Vital Sign Reading Time Taken Comments Blood Pressure 126/77 12/07/2015 7:47 PM EDT Pulse 86 12/07/2015 7:47 PM EDT Temperature - - Respiratory Rate 15 12/07/2015 7:47 PM EDT Oxygen Saturation 97% 12/07/2015 7:47 PM EDT Inhaled Oxygen Concentration - - Weight 61.2 kg (135 lb) 12/07/2015 3:25 PM EDT Height 167.6 cm (5' 6 ) 12/07/2015 3:25 PM EDT Body Mass Index 21.79 12/07/2015 3:25 PM EDT Plan of Treatment Health Maintenance Due Date Last Done Comments DEPRESSION SCREENING 2001 SMOKING Hx and SMOKELESS TOBACCO SCREENING 2002 HEPATITIS C SCREENING 2007 HIV ONE-TIME SCREENING (18-65 YEARS) 2007 PAP SMEAR 2010 COVID-19 VACCINE (2023- season) 2024 INFLUENZA VACCINE (#1) 2024 07/14/2016 Adult Td,Tdap Booster 07/12/2028 07/12/2018 , 05/29/2014, 10/18/2006, Additional history exists HIB VACCINES Completed 04/07/1992 MENINGOCOCCAL VACCINES (ACWY) Completed 10/18/2006 HEPATITIS A VACCINES Aged Out No long er eligible based on patient's age to complete this topic MENINGOCOCCAL VACCINES (B) Aged Out N o longer eligible based on patient's age to complete this topic PNEUMOCOCCAL VACCINES (0-49 years) Aged Out No longer eligible based on patient's age to complete this topic Medical Devices Not on file Insurance [facility] HMO [place] [id number] [place] [address] HMO HMO [facility] Care Teams Surface Grinder Tender Relationship Specialty Start Date End Date Pcp, Not Required [address] [place] [id number] PCP - General 01/20/14 Additional Source Comments The information contained in this document represents components of the legal health record. It is not the complete legal health record.[facility]
--- OUTSIDE RECORDS SUMMARY | 2025-01-24 13:19 | XMS_ITS | Clinical Summary ---
Author Organization [facility] Address [address] [place] [address] Care Team Providers Care Pediatric Speech Language Pathologist Name Role Phone Unavailable Primary Care Provider Unavailabl e Allergies No known active allergies Medications No known medications Active Problems Problem Noted Date Diagnosed Date Low grade squamous intraepit h lesion on cytologic smear cervix (lgsil) 07/17/2018 Overview (07/26/2018): REHABILITATION SUPERVISOR department called to book colpo. Pt declined, states she has REHABILITATION SUPERVISOR she will f/u with. (see t/e 07/18/18) Gastroesophageal reflux disease 12/15/2015 Immunizations Immunization Administration Dates Next Due Flu Vac,Quad Contains Perserv,latexfr 3yrs &> Td (adult), adsorbed 05/29/2014 Tdap 07/12/2018 Family History Medical History Relation Name Comments Cancer (?Type) Maternal grandmother thyro id Cancer - Breast Mother Other Mother Crohn/fibromyal ernestina/blood clots on mother side of family. chest and brain Relation Name Status Comments Maternal grandmother Mother Social History Tobacco Use Types Packs/Day Years Used Date Smoking Tobacco: Every Day Cigarettes 0.3 10.3 Started: 12/14/2005; Last attempted to quit: 04/13/2016 Smokeless Tobacco: Never Comments:5 cigarrettes a day Alcohol Use Standard Drinks/Week Comments Yes 5 (1 standard drink = 0.6 oz pur e alcohol) Intimate Partner Violence Answer Date R ecorded Fear of Current or Ex-Partner Not on file Emotionally Abused Not on file 01/18/2023 Physically Abused Not on file 01/18/2023 Sexually Abused Not on file 01/18/2023 Feel Safe at Home Not on file 01/18/2023 Comments No Sex and Gender Information Value Date Recorded Sex Assigned at Not on file Legal Sex Female 2:19 PM EDT Gender Identity Not on file Sexual Orientation Not on file 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 Not on file Not on file Not on file Last Filed Vital Signs Vital Sign Reading Time Taken Comments Blood Pressure 116/78 07/12/2018 9:19 AM EST Pulse 66 07/12/2018 9:19 AM EST Temperature 36.8 C (98.3 F) 02/18/2017 9:06 AM EDT Respiratory Rate - - Oxygen Saturation 97% 10/25/2016 4:03 PM EDT Inhaled Oxygen Concentration - - Weight 66.4 kg (146 lb 6.4 oz) 07/12/2018 9:19 A M EST Height 168.9 cm (5' 6.5 ) 07/12/2018 9:19 AM EST Body Mass Index 23.28 07/12/2018 9:19 AM EST Plan of Treatment Health Maintenance Due Date Last Done Comments Hep B (1 of 3 - 19+ 3-dose series) 2008 Pap Smear 07/12/2021 07/12/2018, 07/14/2016, 07/28/2015 (Previously completed) COVID-19 Vaccine (2023-2 5 season) 2024 Influenza (#1) 2025 07/14/2016 DTaP/Tdap/Td (2 - Td or Tdap) 07/12/2028, 05/29/2014 Zoster (Shingrix) (1 of 2) 2039 Hepatitis C Screening Completed 07/14/2016 HPV Vaccine (No Doses Required) Completed Hep A Aged Out No longer eligi ble based on patient's age to complete this topic Hib Aged Out No longer eligi ble based on patient's age to complete this topic Meningococcal ACWY Aged Out No longer eligible based on patient's age to complete this topic Pneumococcal Aged Out No longer eligi ble based on patient's age to complete this topic Goals Goal Patient Goal Type Associated Problems Recent Progress Patient-Stated? Author Quit smoking / using tobacco Lifestyle No Sharee Lechuga-Inac tive Procedures * Due to [place] Generate law, this organization might not be sharing negative HIV tests. Procedure Name Priority Date/Time Associated Diagnosis Comments THINPREP TIS PAP (REFL) HPV MRNA E6/E7 Routine 07/12/2018 3:19 PM EST Screening for malignant neoplasm of cervix HEPATITIS C AB WITH REFLEX TO RNA PCR, SERUM Routine 07/14/2016 3:20 PM EST Preventative health care from Last 3 Months or Most Recently Relevant to Health Maintenance Results * Due to [place] Generate law, this organization might not be sharing negative HIV tests. * (ABNORMAL) THINPREP TIS PAP (REFL) HPV MRNA E6/E7 (07/12/2018 3:19 PM EST) Clinical information None given IMPLANT [facility] Date last menstrual period NONE GIVEN [facility] Date of previous PAP smear NONE GIVEN [facility] Date of previous biopsy NONE GIVEN [facility] Specimen source (Cvx/Vag) Cervix, Endocervix [facility] Statement of Adequacy (Cvx/Vag) Satisfactory for evaluation. Endocervical/trans formation zone component present. [facility] General categories (Cvx/Vag) EPITHELIAL CELL ABNORMALITY(A) [facility] Cytology, Pap Smear Low Grade Squamous Intraepithelial Lesion (LSIL)(A) [facility] Cytology study comment (Cvx/Vag) This Pap test has been evaluated with computer assisted technology. [facility] Clinical Education Consultant (Cvx/Vag) MSM, CT(ASCP) CT screening location: [place] [address] [facility] Pathologist (Cvx/Vag) Mara Burch M.D., Board Certified in Anatomic and Clinical Pathology (electronic signature) Consulting Pathologist [facility] [address] [place] [address] [facility] COMMENT SEE NOTE [facility] Comment: EXPLANATORY NOTE: The Pap is a screening test for cervical cancer. It is not a diagnostic test and is subject to false negative and false positive results. It is most reliable when a satisfactory sample, regularly obtained, is submitted with relevant clinical findings and history, and when the Pap result is evaluated along with historic and current clinical information. 07/12/2018 3:19 PM EST 07/12/2018 10:03 PM EST Narrative Resulting Agency Comment [id number] Sharee Lechuga MD PATHOLOGY-INTERFACED Final Resul t [facility] [address] [place] [address] * HEPATITIS C AB WITH REFLEX TO RNA PCR, SERUM (07/14/2016 3:20 PM EST) Hepatitis C virus Ab NON-REACTI VE NON-REACT PERLITA [facility] Hepatitis C virus Ab Signal/Cutoff 0.01 <1.00 [facility] 07/14/2016 3:20 PM EST 2016 12:42 AM EST Narrative Resulting Agency Comment [id number] Sharee Lechuga MD LABORATORY Final Result Performing Organization Address City/[facility] Co de Phone Number [facility] [address] [place] [address] from Last 3 Months or Most Recently Relevant to Health Maintenance Insurance
--- OUTSIDE RECORDS SUMMARY | 2025-01-24 13:19 | XMS_ITS | Encounter Summary ---
Author Organization [facility] Address [address] [place] [address] Care Team Providers Care Children'S Court Magistrate Name Role Phone Sharee Lechuga MD Primary Care Provider [phone] Encounter Details Date Type Department Care Team (Late st Contact Info) Description 07/12/2018 Orders Only [facility] Medicine [address] [place] [phone] Sharee Lechuga MD [address] [address] Social History Tobacco Use Types Packs/Day Years [...] Quit smoking / using tobacco Lifestyle No Pio Lechuga tisimón documented as of this encounter Procedures * Due to [place] state law, this organization might not be sharing negative HIV tests. Procedure Name Priority Date/Time Associated Diagnosis Comments THINPREP TIS PAP (REFL) HPV MRNA E6/E7 Routine 07/12/2018 3:19 PM EST Screening for malignant neoplasm of cervix CBC (H/H, RBC, INDICES,WBC, PLT) Routine 07/12/2018 10:13 AM EST Screening, anemia, deficiency, iron THYROID STIMULATING HORMONE (TSH) WITH FREE T4 REFLEX, SERUM Routine 07/12/2018 10:13 AM EST Thyroid nodule LIPID PANEL WITH REFLEX TO DIRECT LDL Routine 07/12/2018 10:13 AM EST Annual physical exam COMPREHENSIVE METABOLIC PANEL WITH GFR Routine 07/12/2018 10:13 AM EST Annual physical exam documented in this encounter Results * Due to [place] state law, this organization might not be [...] evaluated with computer assisted technology. [facility] Food Checkers And Cashiers Supervisor (Cvx/Vag) MSM, CT(ASCP) CT screening location: [place] [address] [facility] Pathologist (Cvx/Vag) Mara Burch M.D., Board Certified in Anatomic and Clinical Pathology (electronic signature) Consulting Pathologist [facility] [address] [place] [address] [facility] COMMENT SEE NOTE [facility] [...] 10:03 PM EST Narrative Resulting Agency Comment [id number] Sharee Lechuga MD PATHOLOGY-INTERFACED Final Resul t Performing Organization Address [facility] Co de Phone Number [facility] [address] [place] [address] * CBC (H/H, RBC, INDICES,WBC, PLT) (07/12/2018 10:13 AM EST) WBC 7.6 3.8 - 10.8 K/uL [facility] RBC 4.81 3.80 - 5.10 M/uL [facility] Hemoglobin 14.4 11.7 - 15.5 g/dL [facility] Hematocrit 44.0 35.0 - 45.0 % [facility] MCV 91.5 80.0 - 100.0 fl [facility] MCH 29.9 27.0 - 33.0 pg [facility] MCHC 32.7 32.0 - 36.0 g/dL [facility] RDW 13.1 11.0 - 15.0 % [facility] PLT 328 140 - 400 K/uL [facility] 07/12/2018 10:1 3 AM EST 07/12/2018 10:13 AM EST Narrative [facility] - 07/12/2018 1:32 PM EST non fasting Patient's primary care provider is: N/A Testing performed at: [facility], [address] [place] [address], [id number], Coring Machine Operator: Davion Bean MD Sharee Lechuga MD LAB SAME DAY RESULT Final Result Performing Organization Address [facility] de Phone Number [address] [address] DIRECTOR Davion Bean MD * THYROID STIMULATING HORMONE (TSH) WITH FREE T4 REFLEX, SERUM (07/12/2018 10:13 AM EST) TSH (Thyrotropin) 0.65 0.40 - 4.50 uIU/ml [facility] 07/12/2018 10:1 3 AM EST 07/12/2018 10:13 AM EST Narrative [facility] - 07/12/2018 1:44 PM EST non fasting Patient's primary care provider is: N/A Testing performed at: [facility], [address] [place] [address], [address], Coring Machine Operator: Davion Bean MD Sharee Lechuga MD LABORATORY Final Result [address] [address] DIRECTOR Davion Bean MD * (ABNORMAL) COMPREHENSIVE METABOLIC PANEL WITH GFR (07/12/2018 10:13 AM EST) Glucose 100(H) 65 - 99 mg/dl [facility] Urea Nitrogen Blood (BUN) 14 7 - 25 mg/dL [facility] Creatinine 0.70 0.50 - 1.16 mg/dL [facility] Sodium 138 136 - 145 mmo/L [facility] Potassium 4.6 3.5 - 5.3 mmol/L [facility] Chloride 101 98 - 107 mmo/L [facility] Calcium 10.2 8.5 - 10.4 mg/dL [facility] Protein Total (Serum) 7.6 6.0 - 8.3 g/dL [facility] Albumin 5.4(H) 3.5 - 5.2 g/dL [facility] Globulin 2 2 - 4 G/DL [facility] Bilirubin Total 0.62 0.00 - 1.20 mg/dL [facility] Alkaline phosphatase 43 33 - 130 U/L [facility] AST (SGOT) 19 <38 U/L [facility] ALT (SGPT) 14 <47 U/L [facility] Carbon dioxide 24 23 - 33 mmol/L [facility] GFR 105 >60 ml/min [facility] Comment:If the patient is Af rican Malaysian, please multiply result by 1.210 07/12/2018 10:1 3 AM EST 07/12/2018 10:13 AM EST Narrative [facility] - 07/12/2018 1:44 PM EST non fasting Patient's primary care provider is: N/A Testing performed at: [facility], [address] [place] [address], [address], Coring Machine Operator: Davion Bean MD Sharee Lechuga MD LABORATORY Final Result Performing Organization Address [facility] de Phone Number [address] [address] DIRECTOR Davion Bean MD * LIPID PANEL WITH REFLEX TO DIRECT LDL (07/12/2018 10:13 AM EST) Cholesterol 176 <200 mg/dL [facility] Triglyceride 98 <150 mg/dL [facility] HDL Cholesterol 84 >40 mg/dL [facility] Comment: NCEP GUIDELINES Desireable >60 mg/dL Borderline 40-59 mg/dL Undesirable <40 mg/dL LDL Cholesterol 73 <130 mg/dL [facility] CHOL/HDL Ratio 2 0 - 5 CALC [facility] 07/12/2018 10:1 3 AM EST 07/12/2018 10:13 AM EST Narrative [facility] - 07/12/2018 1:44 PM EST non fasting Patient's primary care provider is: N/A Testing performed at: [facility], [address] [place] [address], [address], Coring Machine Operator: Davion Bean MD Sharee Lechuga MD LABORATORY Final Result Performing Organization Address [facility] de Phone Number [address] [address] DIRECTOR Davion Bean MD documented in this encounter Visit Diagnoses Diagnosis Annual physical exam Routine general medical examination at a health care facility Thyroid nodule Nontoxic uninodular goiter Screening, anemia, deficiency, iron Screening for iron deficiency anemia Screening for malignant neoplasm of cervix Screening for malignant neoplasm of the cervix documented in this encounter Care Teams Children'S Court Magistrate Relationship Specialty Start Date End Date Sharee Lechuga MD PCP - General Internal Medicine 12/09/15 11/04/18 documented as of this encounter
--- OUTSIDE RECORDS SUMMARY | 2025-01-24 13:19 | XMS_ITS | Encounter Summary ---
Author Organization [facility] Address [address] [place] [address] Care Team Providers Care Basket Hand Braider Name Role Phone Sharee Lechuga MD Primary Care Provider [phone] Reason for Visit * Reason Comments No Show Encounter Details Date Type Department Care Team (Late st Contact Info) Description 02/10/2016 Telephone [facility] Medicine [address] [place] [phone] Sharee Lechuga MD [address] [address] No Show Social History Tobacco Use Types Packs/Day Years Used Date Smoking Tobacco: Every Day Cigarettes 0.3 19.1 Started: 12/14/2005 Smokeless Tobacco: Never Alcohol Use Standard Drinks/Week Comments Yes 5 (1 standard drink = 0.6 oz pur e alcohol) Comments No Sex and Gender Information Value Date Recorded Sex Assigned at Not on file Legal Sex Female 2:19 PM EDT Gender Identity Not on file Sexual Orientation Not on file documented as of this encounter Miscellaneous Notes * Telephone Encounter - Donnell Gonzalez - 02/10/2016 3:00 PM EDT [id number] to reschedule appointment missed on 02/09/16. documented in this encounter Plan of Treatment Not on file documented as of this encounter Goals Goal Patient Goal Type Associated Problems Recent Progress Patient-Stated? Author Quit smoking / using tobacco Lifestyle No Sharee Lechuga-Ramon tive documented as of this encounter Visit Diagnoses Not on filedocumented in this encounter Care Teams Basket Hand Braider Relationship Specialty Start Date End Date Sharee Lechuga MD PCP - General Internal Medicine 12/09/15 11/04/18 documented as of this encounter
[2025-01-24 14:03] LABS: OBS Int Ctl Valid YES; OBS Lot 01-2; OBS1 NEGATIVE (NEGATIVE)
[2025-01-24 14:03] LABS: IDNOW Serial# 08D9AD1C; Strep A Nucleic Acid Negative (Negative)
[2025-01-24 14:36] LABS: Resp Syncy Virus RNA Qual PCR NEGATIVE (Negative); SARS COV2 PCR INHOUSE NEGATIVE (Negative)
[2025-01-24 14:44] VITALS: BP 127/77; PULSE 71; RESP 15; TEMP 37.1; O2SAT 98
[2025-01-24] MEDS: iohexoL 350 MG/ML 100 ML INFUS..BTL IV (14:52)
[2025-01-24 15:32] LABS: MANUAL DIFF FLAG NO
[2025-01-24 15:34] LABS: Hematocrit 36.9 % (37.0-47.0); Hemoglobin 12.3 g/dl (12.0-16.0); Imm Gran Abs Auto 0.05 X10*3/uL (0.00-0.03); Imm Gran Pct Auto 0.4 % (0.0-0.4); Lymphocytes Absolute Auto 2.4 X10*3/uL (1.2-4.9); Mean Corpuscular HGB Conc 33.3 g/dl (31.0-35.0); Mean Corpuscular Hemoglobin 29.7 pg (27.0-33.0); Mean Corpuscular Volume 89.1 fL (80.0-98.0); NRBC Abs Auto 0.000 X10*3/uL (0.0-0.012); NRBC Pct Auto 0.0 /100WBC (0.0-0.2); Platelet Count 351 X10*3/uL (160-400); Red Blood Count 4.14 X10*6/uL (4.20-5.50); White Blood Count 11.9 X10*3/uL (4.8-10.8)
[2025-01-24 15:48] VITALS: BP 134/88; PULSE 70; RESP 16; O2SAT 98
[2025-01-24 16:14] LABS: Troponin-I High Sensitivity < 2.7 ng/L (<3.5-17.0)
[2025-01-24 16:35] VITALS: BP 139/89; PULSE 70; RESP 18; TEMP -17.7; TEMP 0; O2SAT 99
[2025-01-24 16:42] VITALS: BP 139/89; PULSE 70; RESP 18; TEMP -17.7; TEMP 0; O2SAT 99
== END 2025-01-24 16:43 | disposition home or self-care (01) ==
PROVIDERS: Physician Assistant; Emergency Provider Emergency Medicine; PCP Nurse Practitioner
DX: R10.9 Unspecified abdominal pain (principal); K21.9 Gastro-esophageal reflux disease without esophagitis; Z03.818 Encounter for observation for suspected exposure to other biological agents ruled out; K92.0 Hematemesis; K22.6 Gastro-esophageal laceration-hemorrhage syndrome
CPT/HCPCS: 36415; 74177; 80053; 80307; 81001; 81025; 82272; 83690; 84484; 84702; 85025; 85610; 87637; 87651; 93005; 96361; 96374; 96375; 99285; J2405; J2470; Q9967

== ENCOUNTER → 2025-01-24 11:31 | Outpatient (BNV) | payer BC, SELFPAY | PROVIDERS: Emergency Provider Emergency Medicine; PCP Nurse Practitioner; Visit Provider Internal Medicine | DX: R94.31 Abnormal electrocardiogram [ECG] [EKG] (principal); R53.1 Weakness | CPT/HCPCS: 93010 ==

== ENCOUNTER → 2025-01-24 14:09 | Outpatient (BNV) | payer BC, SELFPAY | PROVIDERS: Emergency Provider Emergency Medicine; PCP Nurse Practitioner; Visit Provider Radiology Diagnostic Radiology | DX: R10.9 Unspecified abdominal pain (principal); K42.9 Umbilical hernia without obstruction or gangrene | CPT/HCPCS: 74177 ==

== ENCOUNTER 2025-02-13 10:58 | Day surgery (SDC) | payer BC, SELFPAY ==
--- OUTSIDE RECORDS SUMMARY | 2023-09-21 06:00 | XMS_ITS ---
Author Organization [facility] Address [address] [address] Care Team Providers Care Transportation Coordinator Name Role Phone OTIS MONZON Unavailable [phone] REASON FOR VISIT Annual NURSE'S ASSISTANT Physical Encounters Encounter Location Date Provider Diagnosis [facility] [address] [address] 09/21/2023 OTIS MONZON Encounter for gynecological examination (general) (routine) without abnormal findings Z01.419 and Encounter for screening for infections with a predominantly sexual mode of transmission Z11.3 Assessments Encounter Date Diagnosis (ICD Code) Assessment Notes Treatment Notes Treatment Clinical Notes Section Notes 09/21/2023 Encounter for gynecological examination (general) (routine) without abnormal findings (ICD-10 - Z01.419) During the visit, the following areas of concern were addressed: Discussed cervical cancer screening with either cytology alone every 3 years or high risk HPV co-testing every 5 years as per ASCCP guidelines. Advised continued annual pelvic exams. Patient encouraged to increase her level of exercise. SBE technique encouraged/tau ght. 09/21/2023 Encounter for screening for infections with a predominantly sexual mode of transmission (ICD-10 - Z11.3) Plan Of Treatment Treatment Notes Assessment Notes Encounter for gynecological examination (general) (routine) without abnormal findings During the visit, the following areas of concern were addressed: Discussed cervical cancer screening with either cytology alone every 3 years or high risk HPV co-testing every 5 years as per ASCCP guidelines. Advised continued annual pelvic exams. Patient encouraged to increase her level of exercise. SBE technique encouraged/taught. Next Appt Details Follow Up: 1 Year, Reason: Y early Instant Print Operator Exam Progress Notes * YOLANDE JONES:[birth year] (34 yo F)Acc No.[id number]:09/21/2023 PROGRESS NOTES Patient: MARTY BILL Provider: Júnior MONZON MD :1990 A ge:33 Y S ex:Female Date:09/21/2023 Address:[address] [place], [place] [id number] Subjective: * Chief Complaints: * 1 . Annual NURSE'S ASSISTANT Physical. 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 She has been in state of good health since her last exam. She has the following concerns: She has not received the Covid-19 vaccine. Relationship status: *partnered for 3.5 years. She is sexually active. Sexual partner(s): male. She does *not wish to have STI testing. Menses: *monthly, lasting 4-5 days, moderate flow. No intermenstrual bleeding. Contraception: none, attempting conception. She is taking folic acid/ vitamin. The patient has not had an abnormal pap smear within the last 5 years. Her most recent pap smear was 05/05/21 - NIL, Neg HR HPV. Next due for cotesting in 2025. The patient does exercise. She exercises x 1-2 days/week by walking or an exercise video - core/strength/total body. * ROS: A nnual Instant Print Operator Exam ROS: Bowel habit changes d enies. B ladder symptoms d enies. V aginal discharge, unusual d enies. V aginal itch or odor d enies. w eight or appetite changes d enies. C hest pains, SOB d enies. d epression d enies.? B reast: Denies B reast lump. D enies N ipple discharge.? H ematology: Denies S wollen glands. S kin: Patient denies c hanging moles. P sychiatric: Denies A nxiety. * Medical History: * Instant Print Operator History: S exual activity c urrently sexually active. L ast Pap Smear: 1 07/06/2020 NIL, HPV NEG, 12/01/14 NIL. M ammogram: N ot due per age. A bnormal Pap Smear: ASC/neg hrHPV. L MP and menses 1 06/18/21. H istory of STD's: N one. B irth Control: N explanon 06/2019; removed 06/30/23. G ardasil: s eries completed. * OB History: T otal pregnancies G 0 P0000. 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 HEAD: n ormocephalic, atraumatic. NECK/THYROID: n kiko supple, full range of motion,thyroid normal. LYMPH NODES: n o axillary or supraclavicular adenopathy.? SKIN: n ormal,good turgor,no rashes,no suspicious lesions.? BREASTS: n ormal,no dimpling,no discharge,no drainage,no masses palpable bilaterally,nontender. ABDOMEN: s oft, non-tender, non distended without masses or hepatosplenomegay. BACK: n o costovertebral angle tenderness. FEMALE GENITOURINARY: V ulva without lesions or masses, vagina pink without abnormal discharge, lesions or masses, cervix appears normal and is not tender to palpation, uterus is normal size, mobile, nontender and anteverted, ovaries are not palpable. NEUROLOGIC: a lert and oriented,gait normal. PSYCH: a lert, oriented,cognitive function intact,cooperative with exam,good eye contact,mood/affect full range,speech clear. Assessment: * Assessment: 1. E ncounter for gynecological examination (general) (routine) without abnormal findings - Z01.419 (Primary) 2 . E ncounter for screening for infections with a predominantly sexual mode of transmission - Z11.3 Plan: * Treatment: * Follow Up: 1 Year (Reason: Yearly Instant Print Operator Exam) * Images: Billing Information: * Visit Code: 83404 Preventive Care Est Pt. Age 18-39. 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 She has been in state of good health since her last exam. She has the following concerns: She has not received the Covid-19 vaccine. Relationship status: *partnered for 3.5 years. She is sexually active. Sexual partner(s): male. She does *not wish to have STI testing. Menses: *monthly, lasting 4-5 days, moderate flow. No intermenstrual bleeding. Contraception: none, attempting conception. She is taking folic acid/ vitamin. The patient has not had an abnormal pap smear within the last 5 years. Her most recent pap smear was 05/05/21 - NIL, Neg HR HPV. Next due for cotesting in 2025. The patient does exercise. She exercises x 1-2 days/week by walking or an exercise video - core/strength/total body. Examination Category Sub-Category Detail Notes Category Not es General Examination GENERAL APPEARANCE: in no ac christy distress, well developed, well nourished, highway truck driver present in room HEAD: normocephalic, atrau matic NECK/THYROID: neck supple, full ra nge of motion, thyroid normal ABDOMEN: soft, non-tender, no n distended without masses or hepatosplenomegay NEUROLOGIC: alert and oriented, gait normal SKIN: normal, good turgor, no rashes, no suspicious lesions BACK: no costovertebral an gle tenderness BREASTS: normal, no dimpling, no discharge, no drainage, no masses palpable bilaterally, nontender LYMPH NODES: no axillary or supra clavicular adenopathy PSYCH: alert, oriented, cog nitive function intact, cooperative with exam, good eye contact, mood/affect full range, speech clear FEMALE GENITOURINARY: Vulva without lesi ons or masses, vagina pink without abnormal discharge, lesions or masses, cervix appears normal and is not tender to palpation, uterus is normal size, mobile, nontender and anteverted, ovaries are not palpable
--- OUTSIDE RECORDS SUMMARY | 2024-01-23 06:20 | XMS_ITS ---
Author Organization [facility] Address [address] [address] Care Team Providers Care Escort Patients Name Role Phone OTIS MONZON Unavailable [phone] REASON FOR VISIT Annual MERINGUER Physical Encounters Encounter Location Date Provider Diagnosis [facility] [address] [address] 01/23/2024 OTISAmaya DOYLEMONZON Encounter for gynecological examination (general) (routine) without abnormal findings Z01.419 and Encounter for screening for infections with a predominantly sexual mode of transmission Z11.3 Assessments Encounter Date Diagnosis (ICD Code) Assessment Notes Treatment Notes Treatment Clinical Notes Section Notes 01/23/2024 Encounter for gynecological examination (general) (routine) without abnormal findings (ICD-10 - Z01.419) During the visit, the following areas of concern were addressed: Discussed cervical cancer screening with either cytology alone every 3 years or high risk HPV co-testing every 5 years as per ASCCP guidelines. Advised continued annual pelvic exams. Patient encouraged to increase her level of exercise. SBE technique encouraged/tau ght. 01/23/2024 Encounter for screening for infections with a [...] Follow Up: 1 Year, Reason: Y early Display Card Writer Exam Progress Notes * YOLANDE JONES:[birth year] (34 yo F)Acc No.[id number]:01/23/2024 PROGRESS NOTES Patient: MARTY BILL Provider: Júnior MONZON MD :1990 A ge:33 Y S ex:Female Date:01/23/2024 Address:[address] [place], [place] [id number] Subjective: * Chief Complaints: * 1 . Annual MERINGUER Physical. 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 She has been in state [...] - core/strength/total body. * ROS: A nnual Display Card Writer Exam ROS: Bowel habit changes d enies. [...] sychiatric: Denies A nxiety. * Medical History: Objective: * Vitals: * Examination: G eneral Examination: GENERAL APPEARANCE: i n no acute distress,well developed, well nourished,early childhood assistant present in room. HEAD: n ormocephalic, atraumatic. [...] * Follow Up: 1 Year (Reason: Yearly Display Card Writer Exam) * Images: Billing Information: * Visit Code: 98662 Preventive Care Est Pt. Age 18-39. 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 She has been in state [...] ac christy distress, well developed, well nourished, early childhood assistant present in room HEAD: normocephalic, atrau matic [...]
--- OUTSIDE RECORDS SUMMARY | 2024-12-31 07:00 | XMS_ITS ---
Author Organization [facility] Address [address] [address] Care Team Providers Care Adjunct Trainer Name Role Phone OTIS MONZON Unavailable [phone] REASON FOR VISIT Annual MEDIA RELATIONS DIRECTOR Physical Medications Medication SIG (Take, Route, Fr equency, Duration) Notes Start Date End Date Status Fluconazole 150 MG 1 tablet Orally ever y 3 days; Duration: 3 days 12/21/2023 Active Encounters Encounter Location Date Provider Diagnosis [facility] [address] [address] 12/31/2024 OTIS MONZON Encounter for gynecological examination (general) (routine) without abnormal findings Z01.419 and Encounter for screening for infections with a predominantly sexual mode of transmission Z11.3 Assessments Encounter Date Diagnosis (ICD Code) Assessment Notes Treatment Notes Treatment Clinical Notes Section Notes 12/31/2024 Encounter for gynecological examination (general) (routine) without abnormal findings (ICD-10 - Z01.419) During the visit, the following areas of concern were addressed: Discussed cervical cancer screening with either cytology alone every 3 years or high risk HPV co-testing every 5 years as per ASCCP guidelines. Advised continued annual pelvic exams. Patient encouraged to increase her level of exercise. SBE technique encouraged/tau ght. 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 Annual MEDIA RELATIONS DIRECTOR Physical. 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 She has been in state of good health since her last exam. She has the following concerns: She has not received the Covid-19 vaccine. Relationship status: *partnered for 4.5 years. She is sexually active. Sexual partner(s): male. She does *not wish to have STI testing. Menses: *monthly, lasting 4-5 days, moderate flow. No intermenstrual bleeding. Contraception: *none, attempting conception. She is taking folic acid/ vitamin. The patient has *not had an abnormal pap smear within the last 5 years. Her most recent pap smear was 05/05/21 - NIL, Neg HR HPV. Next due for cotesting in 2025. The patient does exercise. She exercises x 1-2 days/week by walking or an exercise video - core/strength/total body. * ROS: A nnual Grain Merchandising Manager Exam ROS: Bowel habit changes d enies. [...] Denies A nxiety. 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 L ast Pap Smear: 1 07/06/2020 NIL, HPV NEG, 12/01/14 NIL. M ammogram: N ot due per age. A bnormal Pap Smear: ASC/neg hrHPV. L MP and menses . H istory of STD's: N one. B irth Control: N explanon 06/2019; removed 06/30/23. G ardasil: s eries completed. * OB History: T otal pregnancies G 0 P0000. * Medications: T aking Fluconazole 150 MG Tablet 1 tablet Orally every 3 days Objective: * Vitals: * Examination: G eneral Examination: GENERAL APPEARANCE: i n no acute distress,well developed, well nourished,vamp throater present in room. HEAD: n ormocephalic, atraumatic. [...] * Follow Up: 1 Year (Reason: Yearly Grain Merchandising Manager Exam) * Images: Billing Information: * Visit Code: 22649 Preventive Care Est Pt. Age 18-39. 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 She has been in state of good health since her last exam. She has the following concerns: She has not received the Covid-19 vaccine. Relationship status: *partnered for 4.5 years. She is sexually active. Sexual partner(s): male. She does *not wish to have STI testing. Menses: *monthly, lasting 4-5 days, moderate flow. No intermenstrual bleeding. Contraception: *none, attempting conception. She is taking folic acid/ vitamin. The patient has *not had an abnormal pap smear within the [...] ac christy distress, well developed, well nourished, vamp throater present in room HEAD: normocephalic, atrau matic [...]
--- OUTSIDE RECORDS SUMMARY | 2025-02-07 17:38 | XMS_ITS | Encounter Summary ---
Author Organization [facility] Address [address] [place] [address] Care Team Providers Care Welding Lead Burner Name Role Phone Sharee Lechuga MD Primary Care Provider Encounter Details Date Type Department Care Team (Late st Contact Info) Description 10/19/2016 Orders Only [facility] Medicine [address] [place] [phone] Sharee Lechuga MD [address] [address] Medications Social History Tobacco Use Types Packs/Day [...] of this encounter Procedures * Due to [place] state law, this organization might not be sharing negative HIV tests. Procedure Name Priority Date/Time Associated Diagnosis Comments BV/VAGINITIS PANELDNA PROBE(AFFIRM) Routine 10/19/2016 4:29 PM EDT Acute vaginitis CBC (H/H, RBC, INDICES,WBC, PLT) Routine 10/19/2016 11:00 AM EDT Leukocytosis, unspecified type CHLAMYDIA TRACHOMATIS/N. GONORRHOEAE (GC) RNA, TMA (URINE) Routine 10/19/2016 10:59 AM EDT Acute vaginitis documented in this encounter Results * Due to [place] state law, this organization might not be sharing negative HIV tests. * (ABNORMAL) BV/VAGINITIS PANELDNA PROBE (10/19/2016 4:29 PM EDT) Trichomonas vaginalis rRNA (Genital) NOT DETECTED NOT DETECTED [facility] Gardnerella vaginalis rRNA (Genital) DETECTED(A) NOT DETECTED [facility] Comment:Increased levels of G. Vaginalis may not be significant in the absence of signs of bacterial vaginosis. Kerri sp rRNA (Vag) NOT DETECTED NOT DETECTED [facility] 10/19/2016 4:29 PM EDT 10/19/2016 4:29 PM EDT Narrative [facility] - 10/21/2016 11:30 AM EDT Patient's primary care provider is: N/A Testing performed at: [facility], [address] [place] [address], [address], Nba Player: Dano Wharton M.D. Sharee Lechuga MD LABORATORY Final Result [address] [address] DIRECTOR DANO WHARTON M.D. * CBC (H/H, RBC, INDICES,WBC, PLT) (10/19/2016 11:00 AM EDT) WBC 9.0 3.8 - 10.8 K/uL [facility] RBC 4.57 3.80 - 5.10 M/uL [facility] Hemoglobin 13.7 11.7 - 15.5 g/dL [facility] Hematocrit 41.6 35.0 - 45.0 % [facility] MCV 91.0 80.0 - 100.0 fl [facility] MCH 30.0 27.0 - 33.0 pg [facility] MCHC 32.9 32.0 - 36.0 g/dL [facility] RDW 13.1 11.0 - 15.0 % [facility] PLT 347 140 - 400 K/uL [facility] 10/19/2016 11:0 0 AM EDT 10/19/2016 11:00 AM EDT Narrative [facility] - 10/19/2016 12:46 PM EDT Patient's primary care provider is: N/A Testing performed at: [facility], [address] [place] [address], [address], Nba Player: Dano Wharton M.D. Sharee Lechuga MD LAB SAME DAY RESULT Final Result Performing Organization Address [facility]/ZIP Co de Phone Number [address] [address] DIRECTOR DANO WHARTON M.D. * CHLAMYDIA TRACHOMATIS/N. GONORRHOEAE (GC) RNA, TMA (URINE) (10/19/2016 10:59 AM EDT) Chlamydia trachomatis rRNA NOT DETECTED NOT DETECTED [facility] Neisseria Gonorrhoeae rRNA NOT DETECTED NOT DETECTED [facility] COMMENT SEE NOTE [facility] Comment: This test was performed using the APTIMA COMBO2 Assay ([employer] The analytical performance characteristics of this assay, when used to test [facility] specimens have been determined by [facility]. 10/19/2016 10:5 9 AM EDT 10/19/2016 3:12 PM EDT Narrative Resulting Agency Comment [id number] Sharee Lechuga MD LABORATORY Final Result [facility] [address] [place] [address] documented in this encounter Visit Diagnoses Diagnosis Leukocytosis, unspecified type Acute vaginitis Vaginitis and vulvovaginitis, unspecified BV (bacterial vaginosis) Vaginitis and vulvovaginitis, unspecified documented in this encounter Care Teams Welding Lead Burner Relationship Specialty Start Date End Date Sharee Lechuga MD PCP - General Internal Medicine 12/09/15 11/04/18 documented as of this encounter
--- OUTSIDE RECORDS SUMMARY | 2025-02-07 17:38 | XMS_ITS | Encounter Summary ---
Author Organization [facility] Address [address] [place] [address] Care Team Providers Care Oil Driller Name Role Phone Sharee Lechuga MD Primary Care Provider [phone] Reason for Visit * Reason Comments No Show Encounter Details Date Type Department Care Team (Late st Contact Info) Description 02/10/2016 Telephone [facility] Medicine [address] [place] [phone] Sharee Lechuga MD [address] [address] No Show Social History Tobacco Use Types Packs/Day Years Used Date Smoking Tobacco: Every Day Cigarettes 0.3 19.2 Started: 12/14/2005 Smokeless Tobacco: Never Alcohol Use [...] on filedocumented in this encounter Care Teams Oil Driller Relationship Specialty Start Date End Date Sharee Lechuga MD PCP - General Internal Medicine 12/09/15 11/04/18 documented as of this encounter
--- OUTSIDE RECORDS SUMMARY | 2025-02-07 17:38 | XMS_ITS | Clinical Summary ---
Author Organization [facility] Address [address] [place] [phone] Care Team Providers Care Patient Transition Specialist Name Role Phone Trini Aiken DO Primary Care Provider [phone] Surgical History Surgery Date Site/Laterality Comments OTHER [...] 04/30/2022 Social Influencers of Health Screening 04/30/2022 Depression Screening 05/29/2024 COVID-19 Vaccine ( - season) 2025 Influenza Vaccine (#1) 2025 HIB Vaccines Completed [...] age to complete this topic Care Teams Patient Transition Specialist Relationship Specialty Start Date End Date Trini Aiken DO [address] [address] PCP - General 08/17/10
--- OUTSIDE RECORDS SUMMARY | 2025-02-07 17:38 | XMS_ITS | Clinical Summary ---
Author Organization [facility] Address [address] [place] [address] Care Team Providers Care Finishing Powder Press Operator Name Role Phone Unavailable Primary Care Provider Unavailabl e Allergies No known active allergies Medications No known medications Active Problems Problem Noted Date Diagnosed Date Low grade squamous intraepit h lesion on cytologic smear cervix (lgsil) 07/17/2018 Overview (07/26/2018): CANCER RESEARCHER department called to book colpo. Pt declined, states she has CANCER RESEARCHER she will f/u with. 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 [facility] Wheelchair Driver (Cvx/Vag) MSM, CT(ASCP) CT screening location: [place] [address] [facility] Pathologist (Cvx/Vag) Mara Burch M.D., Board Certified in Anatomic and Clinical Pathology (electronic signature) Consulting Pathologist [facility] Pathology [address] [place] [address] [facility] COMMENT SEE NOTE [facility] [...] 10:03 PM EST Narrative Resulting Agency Comment [id number] Sharee Lechuga MD PATHOLOGY-INTERFACED Final Resul t [facility] [address] [place] [address] * HEPATITIS C AB WITH REFLEX TO RNA PCR, SERUM (07/14/2016 3:20 PM EST) Hepatitis C virus Ab NON-REACTI VE NON-REACT PERLITA [facility] Hepatitis C virus Ab Signal/Cutoff 0.01 <1.00 [facility] 07/14/2016 3:20 PM EST 2016 12:42 AM EST Narrative Resulting Agency Comment [id number] Sharee Lechuga MD LABORATORY Final Result Performing Organization Address City/[facility] Co de Phone Number [facility] [address] [place] [address] from Last 3 Months or Most Recently Relevant to Health Maintenance Insurance
--- OUTSIDE RECORDS SUMMARY | 2025-02-07 17:38 | XMS_ITS | Encounter Summary ---
Author Organization [facility] Address [address] [place] [address] Care Team Providers Care Photoresist Contact Printer Name Role Phone Sharee Lechuga MD Primary Care Provider Encounter Details Date Type Department Care Team (Late st Contact Info) Description 07/14/2016 Orders Only [facility] Medicine [address] [place] [phone] Sharee Lechuga MD [address] [address] Social History Tobacco Use Types Packs/Day Years [...] of this encounter Procedures * Due to [place] state law, this organization might not [...] in this encounter Results * Due to [place] state law, this organization might not [...] has been evaluated with computer assisted technology. [facility] Reimbursement Spec (Cvx/Vag) RK, CT(ASCP) CT screening location: [address] [address] [facility] 07/14/2016 4:43 PM EST 2016 3:53 AM EST Narrative Resulting Agency Comment [id number] Sharee Lechuga MD PATHOLOGY-INTERFACED Final Resul t [facility] [address] [place] [address] * THYROID STIMULATING HORMONE (TSH) WITH FREE T4 REFLEX, SERUM (07/14/2016 3:23 PM EST) TSH (Thyrotropin) 0.42 0.40 - 4.50 uIU/ml [facility] 07/14/2016 3:23 PM EST 07/14/2016 3:23 PM EST Narrative [facility] - 07/14/2016 8:34 PM EST non fasting Patient's primary care provider is: N/A Testing performed at: [facility], [address] [place] [address], [address], Team Assembler: Dano Wharton M.D. us Sharee Lechuga MD LABORATORY Final Result Performing Organization Address [facility]/ZIP Co de Phone Number [address] [address] DIRECTOR DANO WHARTON M.D. * LIPID PANEL [...] PM EST 07/14/2016 3:23 PM EST Narrative [facility] - 07/14/2016 8:34 PM EST non fasting Patient's primary care provider is: N/A Testing performed at: [facility], [address] [place] [address], [address], Team Assembler: Dano Wharton M.D. Sharee Lechuga MD LABORATORY Final Result [address] [address] DIRECTOR DANO WHARTON M.D. * (ABNORMAL) COMPREHENSIVE [...] GROUP Comment:If the patient is Af rican Russian, please multiply result by 1.210 07/14/2016 3:23 PM EST 07/14/2016 3:23 PM EST Narrative [facility] - 07/14/2016 8:02 PM EST non fasting Patient's primary care provider is: N/A Testing performed at: [facility], [address] [place] [address], [address], Team Assembler: Dano Wharton M.D. Sharee Lechuga MD LABORATORY Final Result Performing Organization Address [facility] Co de Phone Number [address] [address] DIRECTOR DANO WHARTON M.D. * (ABNORMAL) CBC [...] PM EST 07/14/2016 3:23 PM EST Narrative [facility] - 07/14/2016 6:52 PM EST non fasting Patient's primary care provider is: N/A Testing performed at: [address], [address], Team Assembler: Dano Wharton M.D. Sharee Lechuga MD LAB SAME DAY RESULT Final Result Performing Organization Address [facility] Co de Phone Number [address] [address] DIRECTOR DANO WHARTON M.D. * CHLAMYDIA TRACHOMATIS/N. GONORRHOEAE (GC) RNA, TMA (URINE) (07/14/2016 3:20 PM EST) Pathologist [facility] Chlamydia trachomatis rRNA NOT DETECTED NOT DETECTED [facility] Neisseria Gonorrhoeae rRNA NOT DETECTED NOT DETECTED [facility] COMMENT SEE NOTE [facility] Comment: This test was performed using the APTIMA COMBO2 Assay ([employer] The analytical performance characteristics of this assay, when used to test SurePath specimens have been determined by [employer]. 07/14/2016 3:20 PM EST 2016 12:42 AM EST Narrative Resulting Agency Comment [id number] Sharee Lechuga MD LABORATORY Final Result Performing Organization Address [facility] Co de Phone Number [facility] [address] [place] [address] * HEPATITIS B SURFACE ANTIGEN (07/14/2016 3:20 PM EST) Pathologist [facility] Hepatitis B virus surface Ag NON-REACTI VE NON-REACT PERLITA [facility] 07/14/2016 3:20 PM EST 2016 12:42 AM EST Narrative Resulting Agency Comment [id number] Sharee Lechuga MD LABORATORY Final Result Performing Organization Address [facility] Co de Phone Number [facility] [address] [place] [address] * HEPATITIS B SURFACE ANTIBODY, QUANTITATIVE (07/14/2016 3:20 PM EST) Pathologist [facility] Hepatitis B virus surface Ab 32 > OR = 10 mIU/mL [facility] Comment: Patient has immunity to hepatitis B virus. For additional information, please refer to http://education.EcoSwarm.Adlogix/faq/HUT211 (This link is being provided for informational/ educational purposes only). 07/14/2016 3:20 PM EST 2016 12:42 AM EST Narrative Resulting Agency Comment [id number] Sharee Lechuga MD LABORATORY Final Result Performing Organization Address [facility] Co de Phone Number [facility] [address] [place] [address] * HEPATITIS C AB WITH REFLEX TO RNA PCR, SERUM (07/14/2016 3:20 PM EST) Hepatitis C virus Ab NON-REACTI VE NON-REACT PERLITA [facility] Hepatitis C virus Ab Signal/Cutoff 0.01 <1.00 [facility] 07/14/2016 3:20 PM EST 2016 12:42 AM EST Narrative Resulting Agency Comment [id number] Sharee Lechuga MD LABORATORY Final Result Performing Organization Address [facility] de Phone Number [facility] [address] [place] [address] * RPR, (RAPID PLASMIN REAGIN) WITH REFLEX TO FTA, DIAGNOSTIC (07/14/2016 3:20 PM EST) Reagin Ab NON-REACTI VE NON-REACTI VE [facility] 07/14/2016 3:20 PM EST 2016 12:42 AM EST Narrative Resulting Agency Comment [id number] Sharee Lechuga MD LABORATORY Final Result Performing Organization Address [facility] de Phone Number [facility] [address] [place] [address] documented in this encounter Visit Diagnoses Diagnosis PE (physical exam), annual Routine general medical examination at a health care facility Preventative health care Routine general medical examination at a health care facility Screening for malignant neoplasm of cervix Screening for malignant neoplasm of the cervix documented in this encounter Care Teams Photoresist Contact Printer Relationship Specialty Start Date End Date Sharee Lechuga MD PCP - General Internal Medicine 12/09/15 11/04/18 documented as of this encounter
--- OUTSIDE RECORDS SUMMARY | 2025-02-07 17:38 | XMS_ITS | Patient Health Record ---
Author Organization [facility] Address [address] [place] [address] Care Team Providers Care Furniture Painter Name Role Phone OTSI MONZON Unavailable [phone] Allergies No Known Allergies Reason For Referral No Information Medications Medication SIG (Take, Route, Fr equency, Duration) Notes Start Date End Date Status Fluconazole 150 MG 1 tablet Orally ever y 3 days; Duration: 3 days 12/21/2023 Active Immunizations Vaccine Route Administration Date Status Comme nts HPV (human papillomavirus), quadrivalent, 3 dose schedule Unknown 06/20/2012 Pending Influenza, live, intranasal Intramuscular 05/13/2011 Pendi ng Social History Tobacco Use: Social History Observation Description Date Details (start date - stop date) Former Smoker NA - NA Tobacco Use/Smoking Question Answer Notes Are you a former smoker How long has it been since you last smoked? 1-5 years Alcohol Screen (Audit-C) Question Answer Notes Did you have a drink contain ing alcohol in the past year? Yes How often did you have a dri nk containing alcohol in the past year? 2 to 3 times a week (3 points) How many drinks did you have on a typical day when you were drinking in the past year? 1 or 2 drinks (0 point) How often did you have 6 or more drinks on one occasion in the past year? Never (0 point) Points 3 Interpretation Positive Tobacco use other than smoking: Question Answer Notes Are you an other tobacco user? 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 regular condom use, careful partner selection Heterosexual .CE: Smoking: none quit 2013 .CE: Alcohol: socially drinks alcohol Illicit drugs: no Seatbelt: yes Problems Problem Type SNOMED Code ICD Code Onset Dates Problem Status W/U Status Risk Notes Problem Tobacco user (701946484) Nicotine dependence, unspecified, uncomplicated (F17.200) Active confirmed Problem Amenorrhea (50768128) Amenorrhea, unspecified (N91.2) Active confirmed Encounters Encounter Location Date Provider Diagnosis Total [facility] [address] [place] [address] 12/31/2024 OTIS MONZON Encounter for gynecological examination (general) (routine) without abnormal findings Z01.419 and Encounter for screening for infections with a predominantly sexual mode of transmission Z11.3 [facility] [employer] [employer] [address] [address] 12/31/2024 TOIS MONZON Assessments Encounter Date Diagnosis (ICD Code) Assessment [...] transmission (ICD-10 - Z11.3) Plan Of Treatment Pending Test Test Name Order Date Test, Urine 05/04/2021 Urinalysis 11/22/2021 ULTRASOUND: PELVIC W/TRANSVAGINAL 2021 Insurance Providers Payer Name Payer Address Payer Phone Subscriber Number Group Number Insured Name Patient Relationship to Insured Coverage Start Date Coverage End Date [employer] [place] [address] [place] [address] [id number] MARTY RIVERA Self - patient is the insured Medical (General) History Medical History History ICD Code COVID-19 U07.1 Surgical History Surgery Date(Month/Year)
--- OUTSIDE RECORDS SUMMARY | 2025-02-07 17:38 | XMS_ITS | Encounter Summary ---
Author Organization [facility] Address [address] [place] [address] Care Team Providers Care Private Branch Exchange Operator Name Role Phone Sharee Lechuga MD Primary Care Provider Encounter Details Date Type Department Care Team (Late st Contact Info) Description 02/18/2017 Orders Only [facility] Adult Medicine [address] [place] [phone] hSaree Lechuga MD [address] [address] Social History Tobacco Use Types Packs/Day Years [...] of this encounter Procedures * Due to [place] state law, this organization might not be sharing negative HIV tests. Procedure Name Priority Date/Time Associated Diagnosis Comments BV/VAGINITIS PANELDNA PROBE(AFFIRM) Routine 02/18/2017 10:06 AM EDT Acute vaginitis documented in this encounter Results * Due to [place] state law, this organization might not be sharing negative HIV tests. * (ABNORMAL) BV/VAGINITIS PANELDNA PROBE (02/18/2017 10:06 AM EDT) Trichomonas vaginalis rRNA (Genital) NOT DETECTED NOT DETECTED [facility] Gardnerella vaginalis rRNA (Genital) DETECTED(A) NOT DETECTED [facility] Comment:Increased levels of G. Vaginalis may not be significant in the absence of signs of bacterial vaginosis. Kerri sp rRNA (Vag) NOT DETECTED NOT DETECTED [facility] 02/18/2017 10:0 6 AM EDT 02/18/2017 10:06 AM EDT Narrative [facility] - 02/19/2017 10:05 AM EDT Patient's primary care provider is: N/A Testing performed at: [facility], [address] [place] [address], [address], Table Saw Operator: Dano Wharton M.D. Sharee Lechuga MD LABORATORY Final Result Performing Organization Address City/[facility] Co de Phone Number [address] [address] DIRECTOR DANO WHARTON M.D. documented in this encounter Visit Diagnoses Diagnosis Acute vaginitis Vaginitis and vulvovaginitis, unspecified documented in this encounter Care Teams Private Branch Exchange Operator Relationship Specialty Start Date End Date Sharee Lechuga MD PCP - General Internal Medicine 12/09/15 11/04/18 documented as of this encounter
--- OUTSIDE RECORDS SUMMARY | 2025-02-07 17:38 | XMS_ITS | Encounter Summary ---
Author Organization [facility] Address [address] [place] [address] Care Team Providers Care Wet Wash Assembler Name Role Phone Sharee Lechuga MD Primary Care Provider [phone] Encounter Details Date Type Department Care Team (Late st Contact Info) Description 07/12/2018 Orders Only [facility] Medicine [address] [place] [phone] Sharee Lechuga MD [address] [address] Social History Tobacco Use Types Packs/Day Years [...] evaluated with computer assisted technology. [facility] Multineedle Shirrer (Cvx/Vag) MSM, CT(ASCP) CT screening location: [place] [address] [facility] Pathologist (Cvx/Vag) Mara Burch M.D., Board Certified in Anatomic and Clinical Pathology (electronic signature) Consulting Pathologist [facility] Pathology [address] [place] [address] [facility] COMMENT SEE NOTE [facility] [...] 10:03 PM EST Narrative Resulting Agency Comment [id number] Sharee Lechuga MD PATHOLOGY-INTERFACED Final Resul t Performing Organization Address [facility] Co de Phone Number [facility] [address] [place] [address] * CBC (H/H, RBC, INDICES,WBC, PLT) (07/12/2018 [...] AM EST 07/12/2018 10:13 AM EST Narrative [facility] - 07/12/2018 1:32 PM EST non fasting Patient's primary care provider is: N/A Testing performed at: [facility], [address] [place] [address], [address], Pta: Davion Bean MD Sharee Lechuga MD LAB SAME DAY RESULT Final Result Performing Organization Address [facility] de Phone Number [address] [address] DIRECTOR Davion Bean MD * THYROID STIMULATING HORMONE (TSH) WITH FREE T4 REFLEX, SERUM (07/12/2018 10:13 AM EST) TSH (Thyrotropin) 0.65 0.40 - 4.50 uIU/ml [facility] 07/12/2018 10:1 3 AM EST 07/12/2018 10:13 AM EST Narrative [facility] - 07/12/2018 1:44 PM EST non fasting Patient's primary care provider is: N/A Testing performed at: [facility], [address] [place] [address], [address], Pta: Davion Bean MD Sharee Lechuga MD LABORATORY Final Result [address] [address] DIRECTOR Davion Bean MD * (ABNORMAL) COMPREHENSIVE [...] GROUP Comment:If the patient is Af rican Namibian, please multiply result by 1.210 07/12/2018 10:1 3 AM EST 07/12/2018 10:13 AM EST Narrative [facility] - 07/12/2018 1:44 PM EST non fasting Patient's primary care provider is: N/A Testing performed at: [facility], [address] [place] [address], [address], Pta: Davion Bean MD Sharee Lechuga MD LABORATORY Final Result Performing Organization Address [facility] de Phone Number [address] [address] DIRECTOR Davion Bean MD * LIPID PANEL [...] AM EST 07/12/2018 10:13 AM EST Narrative [facility] - 07/12/2018 1:44 PM EST non fasting Patient's primary care provider is: N/A Testing performed at: [facility], [address] [place] [address], [address], Pta: Davion Bean MD Sharee Lechuga MD LABORATORY Final Result Performing Organization Address [facility] de Phone Number [address] [address] DIRECTOR Davion Bean MD documented in this encounter Visit Diagnoses Diagnosis Annual physical exam Routine general medical examination at a health care facility Thyroid nodule Nontoxic uninodular goiter Screening, anemia, deficiency, iron Screening for iron deficiency anemia Screening for malignant neoplasm of cervix Screening for malignant neoplasm of the cervix documented in this encounter Care Teams Wet Wash Assembler Relationship Specialty Start Date End Date Sharee Lechuga MD PCP - General Internal Medicine 12/09/15 11/04/18 documented as of this encounter
--- OUTSIDE RECORDS SUMMARY | 2025-02-07 17:38 | XMS_ITS | Clinical Summary ---
Author Organization [facility] Address [address] [place] [phone] Phone Care Team Providers Care Counseling Services Manager Name Role Phone Pcp, Not Required Primary [...] topic Medical Devices Not on file Insurance [facility] HMO [place] [id number] [place] [address] [facility] Care Teams Counseling Services Manager Relationship Specialty Start Date End Date Pcp, Not Required [address] [place] [address] PCP - General 01/20/14 Additional Source Comments The information contained in this document represents components of the legal health record. It is not the complete legal health record.[facility]
[2025-02-13 11:06] VITALS: BMI 27.0
--- NOTE | 2025-02-13 11:09 | HO.ANESPROP2 ---
Documented by User: Bhavani Velazquez NP 02/11/25 13:24 HPI - Anesthesia Eval Consult details Narrative: 34 yr old female for upper endoscopy H/O Treasure binh tear age 20s PMFSH Social History Social History Alcohol intake: current Advance Directives: No Advance Directives Information Provided: Yes Meds Allergies Allergy/AdvReac Type Severity Reaction Status Date / Time pear Allergy Unknown Verified 02/13/25 11:15 Documented by User: Sarina García DO 02/13/25 11:19 HPI - Anesthesia Eval Consult details Narrative: 34 yr old female for upper endoscopy H/O Treasure rowland tear age 20s Daily marijuana and vaping PMFSH Family History Family history of problems with anesthesia: No Surgical History History of Problems with Anesthesia: No Social History Social History Alcohol intake: current Advance Directives: No Advance Directives Information Provided: Yes Meds Allergies Allergy/AdvReac Type Severity Reaction Status Date / Time pear Allergy Unknown Verified 02/13/25 11:15 Exam Exam Date and Time: 02/13/25 1115 Height,Weight and Vital Signs: Height 5 ft 6 in Weight 76 kg Airway Mallampati Class: I TM Dist: >3cm Neck ROM: Full Loose/Missing/Broken Teeth: No (patient denies any loose or broken teeth) Heart: S1S2 Lungs: CTAB Assessment and Plan Assessment Anesthesia Assessment: Anesthesia Plan Discussed and Chart Reviewed Final Anesthetic Review Family History of Problems with Anesthesia: No History of Problems with Anesthesia: No NPO: Yes ASA Class: II Final Preanesthetic Review: No Changes in Pt Med Stat, Meds/Allgs Chart Reviewed, Consent Obtained/Reviewed and Anes Risks/Benef Reviewed Patient Risk: Low Procedure Risk: Low Anesthetic Plan Anesthetic Plan: MAC: and Agree w/ Assess. and Plan Disposition: Standard PACU
[2025-02-13 11:26] LABS: UPreg QC Valid YES
--- NOTE | 2025-02-13 11:36 | MHC.SHP ---
Pre-Procedural Eval Section A - 24 Hr Update-Section A only Date of Service: 02/13/25 Section B - Complete if H&P > 30 days Chief Complaint: Unspecified abdominal pain,gerd, Details of Present Illness: 3 weeks of epigastric pain with nausea and worsening GERD Relevant Family History (Specify if Yes): Yes Relevant Social History: Other (specify) (tHC -chronic) Present Medications: see Short Stay Collaborative assessment Medical History: Significant History (gerd, depression ) History of Previous Operations: Relevant previous surgery/procedure and date(s) (laser therapy veins) Allergies: Allergies Allergy/AdvReac Type Severity Reaction Status Date / Time pear Allergy Unknown Verified 02/13/25 11:15 Review of Systems Sugical H&P ROS: Negative: Constitution, Cardiovascular, Respiratory, Neurological, Psychiatric, Hem-Onc, Allergic/Immunologic, Gastrointestinal, Genitourinary, Musculoskeletal, Integumentary, Endocrine and Eyes/Ears/Nose/Throat Exam Surgical H&P Exam: Normal: HEENT, Normal: Heart, Normal: Lungs, Normal: Extremities, Normal: Abdomen, Normal: Skin and Normal: Neurological Plan Diagnosis/Plan: Unchanged I have reviewed the history and physical and performed a pertinent physical examination on my patient. No changes have occurred unless specified. EGD to eval for ulcer, esophagitis, GOO, neoplasia Time Spent With Patient Time: Total time managing care of this patient today ____ minutes.
[2025-02-13] MEDS: Lactated Ringers 1,000 ML 100 ML IVCONT (11:41)
[2025-02-13 11:42] VITALS: BP 118/85; PULSE 68; RESP 14; TEMP 36.9; O2SAT 98
--- NOTE | 2025-02-13 12:06 | W.PM.OPN ---
Operative Note Operative Note Date of Service: 02/13/25 Narrative: Procedure Description: EGD Indication: abdominal pain and GERD Anesthesia: MAC FLEXIBLE TRANSORAL UPPER GASTROINTESTINAL ENDOSCOPY UPPER ENDOSCOPY Consent: Indications for the procedure and potential complications of bleeding, perforation, reaction to medications and missed diagnosis were discussed with the patient and informed consent was obtained. Instrument: Olympus GIF H 190 J mid size upper endoscope Monitoring: Vital signs and clinical assessment, continuous EKG monitoring, Pulse oximetry, Carbon Dioxide monitoring and blood pressure monitoring were done throughout the procedure. Procedure: The patient was placed in the left lateral decubitis position and pre-procedure medications were administered and a bite block was placed. The endoscope was inserted into the mouth and advanced under direct vision to the third part of duodenum. A careful inspection was made as the upper endoscope was withdrawn including a retroflexed examination of the proximal stomach; Findings and interventions are described below. Findings: Larynx:normal Esophagus: GE junction at 40 cm, diaphragm hiatus at 40 cm, normal mucosa - bx taken from GEJ, distal and proximal esophagus Stomach: mild erythema . Biopsies were obtained. Grade 2 flap valve on retroflexed examination of the cardia. good peristalsis noted Duodenum: Mild bulbar duodenitis, bx taken Intervention: Biopsies as noted above, Impression/Findings: mild duodenitis PLAN: Trial of PPI GERD precautions US abdo to r/o gallstones
[2025-02-13 12:11] VITALS: BP 104/74; PULSE 70; RESP 13; TEMP 36.3; O2SAT 100
[2025-02-13 12:26] VITALS: BP 116/79; PULSE 61; RESP 16; O2SAT 97
[2025-02-13 12:40] VITALS: BP 119/84; PULSE 55; RESP 16; TEMP 36.3; O2SAT 98
== END 2025-02-13 13:40 | disposition home or self-care (01) ==
PROVIDERS: Nurse Practitioner; PCP Nurse Practitioner; Visit Provider Internal Medicine Gastroenterology
PROC: 0DJ08ZZ Inspection of Upper Intestinal Tract, Via Natural or Artificial Opening Endoscopic (ICD-10-PCS; CPT 43235; principal; 2025-02-13 12:10)
DX: R10.9 Unspecified abdominal pain (principal); K21.9 Gastro-esophageal reflux disease without esophagitis; K29.80 Duodenitis without bleeding; K44.9 Diaphragmatic hernia without obstruction or gangrene; F32.A Depression, unspecified; Z79.899 Other long term (current) drug therapy
CPT/HCPCS: 43239; 81025; 88305; 88313; 88342; J0168; J2003; J2250; J2704; J3010

== ENCOUNTER → 2025-02-13 10:58 | Outpatient (BNV) | payer BC, SELFPAY | PROVIDERS: PCP Nurse Practitioner; Visit Provider Internal Medicine Gastroenterology | DX: K21.9 Gastro-esophageal reflux disease without esophagitis (principal); R10.9 Unspecified abdominal pain; K29.80 Duodenitis without bleeding | CPT/HCPCS: 43239 ==